=== PATIENT | female | born 1955 | race Caucasian/White ===

== ENCOUNTER → 2018-01-02 | Outpatient (CLI) | payer BC ==
[2018-01-02 08:08] LABS: Urine WBC None Seen /hpf (0 - 5)
[2018-01-02 08:14] LABS: Basophils # (auto) 0.1 uL; Basophils % (auto) 1.1 % (0.0-2.0); Eosinophils # (auto) 0.2 uL; Eosinophils % (auto) 2.7 % (0.0-7.0); Hematocrit 39.2 % (36.0-46.0); Hemoglobin 13.3 g/dL (12.2-16.2); Lymphocytes # (auto) 2.5 uL; Lymphocytes % (auto) 30.7 % (10.0-50.0); Mean Corpuscular Hemoglobin 35.2 pg (28.0-32.0); Mean Corpuscular Volume 103.4 fL (80.0-100.0); Monocytes # (auto) 0.6 uL; Monocytes % (auto) 7.4 % (0.0-12.0); Neutrophils # (auto) 4.7 uL; Neutrophils % (auto) 58.1 % (37.0-80.0); Platelet Count (auto) 326 10^3/uL (140-450); Red Blood Cells 3.79 10^6/uL (4.0-5.20); Red Cell Distribution Width 12.9 % (11.8-14.3); Urine Bacteria NONE SEEN /hpf (None Seen); Urine Blood Negative /uL (Negative); Urine Specific Gravity 1.024 (1.001-1.035)
[2018-01-02 08:44] LABS: Albumin 3.9 g/dL (3.4-5.0); BUN/Creatinine Ratio 23.3; Bilirubin, Total 0.4 mg/dL (0.2-1.0); Calcium 9.3 mg/dL (8.5-10.1); Magnesium 2.1 mg/dL (1.6-2.6); Potassium 4.1 mmol/L (3.5-5.1); Total Protein 8.2 g/dL (6.4-8.2); Uric Acid 7.2 mg/dL (2.6-6.0)
== END | disposition home or self-care (01) ==
LOC: LAB 07:38
DX: Z12.11 Encounter for screening for malignant neoplasm of colon (principal); Z76.89 Persons encountering health services in other specified circumstances
CPT/HCPCS: 36415; 80053; 80061; 81001; 82306; 82607; 83036; 83735; 84443; 84550; 85025; 87086

== ENCOUNTER → 2019-10-23 | Outpatient (CLI) | payer BC ==
[2019-10-23 13:27] LABS: Urine WBC None Seen /hpf (0 - 5)
[2019-10-23 13:30] LABS: Basophils # (auto) 0.1 10 ^3/uL (0-0.2); Eosinophils # (auto) 0.1 10 ^3/uL (0-0.8); Mean Corpuscular Hemoglobin 35.1 pg (28.0-32.0); Mean Corpuscular Hgb Conc. 34.3 g/dL (32.0-36.0)
[2019-10-23 13:31] LABS: Basophils % (auto) 1.1 % (0.0-2.0); Eosinophils % (auto) 1.4 % (0.0-7.0); Hematocrit 41.2 % (36.0-46.0); Hemoglobin 14.1 g/dL (12.2-16.2); Lymphocytes # (auto) 1.7 10 ^3/uL (0.4-5.4); Mean Corpuscular Volume 102.3 fL (80.0-100.0); Monocytes # (auto) 0.5 10 ^3/uL (0-1.3); Neutrophils # (auto) 4.1 10 ^3/uL (1.6-8.6); Neutrophils % (auto) 63.5 % (37.0-80.0); Platelet Count (auto) 307 10^3/uL (140-450); Red Blood Cells 4.02 10^6/uL (4.0-5.20); White Blood Cell 6.4 10^3/uL (4.4-10.8)
[2019-10-23 13:36] LABS: Urine Bacteria NONE SEEN /hpf (None Seen); Urine Blood Negative /uL (Negative); Urine Specific Gravity 1.023 (1.001-1.035)
[2019-10-23 13:44] LABS: INR 1.03 (0.9-1.15)
[2019-10-23 14:01] LABS: Albumin 3.9 g/dL (3.4-5.0); Calcium 9.5 mg/dL (8.5-10.1); Magnesium 2.3 mg/dL (1.6-2.6); Potassium 3.7 mmol/L (3.5-5.1)
[2019-10-23 14:05] LABS: BUN/Creatinine Ratio 20.4; Bilirubin, Total 0.4 mg/dL (0.2-1.0); Phosphorus 3.1 mg/dL (2.5-4.90); Total Protein 8.2 g/dL (6.4-8.2)
[2019-10-23 14:09] LABS: Free T4 (Free Thyroxine) 0.74 ng/dL (0.89-1.76); T3 Total 0.95 ng/mL (0.60-1.81)
[2019-10-23 14:10] LABS: Free T3 2.83 pg/mL (2.3-4.2)
== END | disposition home or self-care (01) ==
LOC: LAB 13:10
DX: Z13.228 Encounter for screening for other metabolic disorders (principal); Z13.21 Encounter for screening for nutritional disorder; R73.09 Other abnormal glucose; R53.1 Weakness; D51.0 Vitamin B12 deficiency anemia due to intrinsic factor deficiency
CPT/HCPCS: 36415; 80053; 80061; 81001; 83036; 83540; 83735; 84100; 84439; 84480; 84481; 84550; 85025; 85610

== ENCOUNTER 2023-10-12 11:45 | Emergency (ER) | payer BC ==
[~2023-10-12] VITALS: Ht 157.5 cm; Wt 56.9 kg
[2023-10-12 12:29] VITALS: BP 174/85; PULSE 75; RESP 17; TEMP 98; O2SAT 100
[2023-10-12] MEDS ORDERED: PRED20TA2 PO (13:02)
[2023-10-12] MEDS ORDERED: LIDO5PAD12 EX (13:02)
== END 2023-10-12 13:06 | disposition home or self-care (01) ==
LOC: ER 11:45
DX: M50.122 Cervical disc disorder at C5-C6 level with radiculopathy (principal); M50.123 Cervical disc disorder at C6-C7 level with radiculopathy
CPT/HCPCS: 72040

== ENCOUNTER → 2024-04-18 | Outpatient (CLI) | payer BC ==
[~2024-04-18] MED LIST: LIDO5PAD12 EX; PRED20TA2 PO
[2024-04-18 08:12] LABS: Urine Bacteria None Seen /hpf (None Seen)
[2024-04-18 08:29] LABS: Basophils # (auto) 0.1 10 ^3/uL (0-0.2); Eosinophils # (auto) 0.3 10 ^3/uL (0-0.8); Eosinophils % (auto) 4.3 % (0.0-7.0); Hematocrit 39.9 % (36.0-46.0); Hemoglobin 13.7 g/dL (12.2-16.2); Lymphocytes # (auto) 2.5 10 ^3/uL (0.4-5.4); Mean Corpuscular Hemoglobin 33.8 pg (28.0-32.0); Mean Corpuscular Hgb Conc. 34.4 g/dL (32.0-36.0); Mean Corpuscular Volume 98.3 fL (80.0-100.0); Monocytes # (auto) 0.5 10 ^3/uL (0-1.3); Monocytes % (auto) 6.9 % (0.0-12.0); Neutrophils # (auto) 3.8 10 ^3/uL (1.6-8.6); Neutrophils % (auto) 52.8 % (37.0-80.0); Nucleated Red Blood Cells % 0.1 %; Platelet Count (auto) 260 10^3/uL (140-450); Red Blood Cells 4.05 10^6/uL (4.0-5.20); Red Cell Distribution Width 13.6 % (11.8-14.3); White Blood Cell 7.2 10^3/uL (4.4-10.8)
[2024-04-18 08:32] LABS: Urine Blood Negative /uL (Negative); Urine Clarity Clear (Clear); Urine Color Yellow (Yellow); Urine Protein, UAD Negative (Negative); Urine Squamous Epithelial Cell None Seen /hpf (<5); Urine Urobilinogen Normal (Negative); Urine WBC 1 /hpf (0 - 5)
[2024-04-18 09:18] LABS: Alanine Aminotransferase 23 U/L (7-40); Albumin 4.5 g/dL (3.2-4.8); Alkaline Phosphatase 111 U/L (46-116); Anion Gap 8 (5-15); Aspartate Aminotransferase 27 U/L (13-40); BUN/Creatinine Ratio 17.6 (10.0-20.0); Bilirubin, Total 0.6 mg/dL (0.2-1.0); Blood Urea Nitrogen 19 mg/dL (9-23); Carbon Dioxide 29 mmol/L (20-31); Chloride 104 mmol/L (98-107); Glucose 102 mg/dL (74-106); Potassium 4.5 mmol/L (3.5-5.1); Sodium 141 mmol/L (136-145); Total Protein 7.2 g/dL (5.7-8.2); Triglycerides 55 mg/dL (< 150)
[2024-04-18 09:19] LABS: Calcium 10.9 mg/dL (8.7-10.4); Cholesterol 221 mg/dL (< 200); HDL Cholesterol 99 mg/dL (40-59); LDL Cholesterol 116 mg/dL (< 100)
[2024-04-18 11:39] LABS: Uric Acid 6.5 mg/dL (3.1-7.8)
[2024-04-18 12:32] LABS: % Iron Saturation 34.4 % (15-50)
== END | disposition home or self-care (01) ==
LOC: LAB 07:46
PROVIDERS: ATTEND Family Medicine
DX: Z12.31 Encounter for screening mammogram for malignant neoplasm of breast (principal); I10 Essential (primary) hypertension; F32.9 Major depressive disorder, single episode, unspecified; M50.30 Other cervical disc degeneration, unspecified cervical region
CPT/HCPCS: 36415; 80053; 80061; 81001; 82306; 82607; 83036; 83540; 83550; 83735; 84443; 84550; 85025; 87086

== ENCOUNTER 2025-02-12 10:41 | Inpatient (IN) | payer BC ==
[~2025-02-12] VITALS: Ht 157.5 cm; Wt 60.8 kg
[2025-02-12 11:37] VITALS: PULSE 133; RESP 28; O2SAT 97
--- NOTE | 2025-02-12 12:22 | DVH ---
CHEST RADIOGRAPH Indication: sob Technique: Single frontal view of the chest was obtained Comparison: None FINDINGS: Lines and Tubes: None. Lungs: Pulmonary edema noted. Pleura: Bilateral pleural effusions. No pneumothorax. Cardiomediastinal contours: Cardiomegaly. Bones: No acute osseous abnormality. IMPRESSION: 1. Cardiomegaly and pulmonary edema. 2. Bilateral pleural effusions.
[2025-02-12] MEDS: LACTATED RINGER'S 1,500 ML IV ONE (13:01)
[2025-02-12 13:53] LABS: Hematocrit 39.3 % (36.0-46.0); Hemoglobin 13.4 g/dL (12.2-16.2); Mean Corpuscular Hemoglobin 33.6 pg (28.0-32.0); Mean Corpuscular Volume 98.4 fL (80.0-100.0); Nucleated Red Blood Cells % 0.2 %
[2025-02-12 14:04] LABS: Albumin 3.7 g/dL (3.2-4.8); Anion Gap 13 (5-15); BUN/Creatinine Ratio 23.8 (10.0-20.0); Blood Urea Nitrogen 20 mg/dL (9-23); Calcium 9.3 mg/dL (8.7-10.4); Carbon Dioxide 21 mmol/L (20-31); Chloride 104 mmol/L (98-107); Glucose 98 mg/dL (74-106); Potassium 3.6 mmol/L (3.5-5.1); Sodium 138 mmol/L (136-145); Total Protein 6.4 g/dL (5.7-8.2)
[2025-02-12 14:05] LABS: Alanine Aminotransferase 156 U/L (7-40); Alkaline Phosphatase 142 U/L (46-116); Bilirubin, Total 1.2 mg/dL (0.2-1.0); INR 1.14 (0.9-1.15); Partial Thromboplastin Time 25.5 SEC (24.5-34.5); Prothrombin Time 11.9 sec (9.3-11.8)
[2025-02-12] MEDS: SODIUM CHLORIDE 0.9% 1,000 ML IV ONE (14:39)
[2025-02-12] MEDS: AMIODARONE BOLUS KIT 100 ML IV ONE (14:39)
[2025-02-12] MEDS ORDERED: ACETAMINOPHEN 325 MG TAB PO PRN (16:30)
[2025-02-12] MEDS ORDERED: NITROGLYCERIN 0.4 MG SL TAB SL PRN (16:30)
[2025-02-12] MEDS ORDERED: MORPHINE SULFATE INJ 2 MG/ml SYRG IV PRN (16:30)
--- NOTE | 2025-02-12 17:12 | DVH ---
INDICATION: elevated lfts TECHNIQUE: Multiple real-time sonographic images of the abdomen were obtained. COMPARISON: None FINDINGS: Hepatic parenchyma echogenic consistent with steatosis.. The liver measures 12.6 cm. No i ntrahepatic biliary ductal dilatation is noted. Anechoic lesion in the liver measuring 6.2 x 4.4 x 5. 2 cm in the left lobe of the liver.. Bilateral pleural effusions noted. The gallbladder wall measures 0.15 cm and is unremarkable. No gallstones or sludge is seen. The co mmon duct measures 0.5 cm and is unremarkable. No pericholecystic fluid is noted. Negative sonograph ic Corrales's sign The right kidney measures 8.01cm. No hydronephrosis. The pancreas is normal The visualized portions of the IVC and aorta are grossly unremarkable. IMPRESSION: 1. 0.6 cm liver with parenchymal changes consistent with steatosis. 2. 6.02 x 4.4 x 5.2 cm cyst in the left lobe of the liver. 3. Gallbladder is unremarkable.
--- NOTE | 2025-02-12 17:29 | ECG ---
[facility] Test Date: 2025-02-12 Test Time: 10:49:30 Pat Name: NASEEM JAMES Department: Room: [facility] Gender: F Plasma Specialist: ER : 1955 Requested By: MORGAN DARNELL Order Number: [id number] Reading MD: Jorge Thomas Measurements Intervals [place] Rate: 127 P: 0 [place]: 0 QRS: 85 QRSD: 82 T: 0 QT: 291 QTc: 424 Interpretive Statements Atrial fibrillation Ventricular premature complex Borderline right axis deviation Nonspecific repol abnormality, lateral leads Electronically Signed On 02-17-2025 13:26:45 PST by Jorge Thomas Please click the below link to view image of tracing.
[2025-02-12] MEDS: ENOXAPARIN SOD 40 MG/0.4 ML SYRINGE SC SCH (17:32)
[2025-02-12] MEDS: MAGNESIUM SULFATE 1GM/100ML 100 ML IV ONE (17:35)
[2025-02-12 18:17] LABS: COVID19 ANTIGEN SOFIA FIA NEGATIVE (NEGATIVE)
[2025-02-12 18:32] VITALS: O2SAT 96
[2025-02-12 19:13] LABS: Urine Amorphous Crystal FEW /hpf (None Seen); Urine Protein, UAD TRACE (Negative)
[2025-02-12 19:21] LABS: Benzodiazephine Screen, Urine Neg (NEGATIVE)
[2025-02-12 19:23] LABS: Amphetamine Screen, Urine Neg (NEGATIVE); Barbiturate Scree,Urine Neg (NEGATIVE); Cannabinoid Screen, Urine Pos (NEGATIVE); Cocaine Screen, Urine Neg (NEGATIVE); Opiate Scree,Urine Neg (NEGATIVE); Phencyclidine Screen, Urine Neg (NEGATIVE)
[2025-02-12 19:31] VITALS: PULSE 114; RESP 36; O2SAT 98
[2025-02-12] MEDS: IOHEXOL 350 MG/ML 100ML IJ ONE (19:31)
[2025-02-12] MEDS: ONDANSETRON HCL 4 MG/2 ML VIAL IV PRN (21:50)
[2025-02-12] MEDS: MELATONIN 5 MG TAB PO SCH (22:20)
--- NOTE | 2025-02-12 22:45 | DVH ---
CTA Chest with intravenous contrast INDICATION: r/o pe COMPARISON: None TECHNIQUE: Multidetector spiral CTA of the chest was performed of the chest with intravenous contrast . PULMONARY ANGIOGRAPHY PROTOCOL was utilized using a bolus-tracking technique centered on the main p ulmonary artery. Axial, coronal and sagittal multiplanar and MIP reformats were performed. Radiation Dose : 1. Chest: CTDI volume is 2.96 mGy. Dose-length product is 701.91 mGy*cm The dose indicators for CT are the volume Computed Tomography (CT) Dose Index (CTDIvol) and the Dose Length Product (DLP), and are measured in units of mGy and mGy-cm, respectively. These indicators are not patient dose, but values generated from the CT scanner acquisition factors. The report includes radiation exposure data for exposures received during this examination. Findings: Pulmonary artery: Suboptimal opacification of the pulmonary arterial vascular secondary to timing of the contrast bolus limits the exclusion of smaller and/or more distal segmental and subsegmental pulmonary emboli. No large central or saddle type segmental pulmonary embolism. Lower neck: Normal thyroid. Lungs: Moderate bilateral pleural effusions with adjacent atelectasis and diffuse multifocal patchy g round-glass opacity. No focal consolidation or pneumothorax. Heart/Vascular Structures: Cardiomegaly. No pericardial effusion. Lymph Nodes: No adenopathy Musculoskeletal: No acute osseous abnormality. Soft tissues: Normal. Upper abdomen: Limited portions of the upper abdomen are unremarkable. 5.3 cm left hepatic lobe cyst. IMPRESSION: 1. Large central or saddle type pulmonary embolus. Suboptimal opacification of the pulmonary arterial vasculature secondary to timing of the contrast bolus limits the occlusion of smaller and/or more di stal segmental and subsegmental pulmonary emboli. 2. Moderate bilateral pleural effusions with adjacent atelectasis and diffuse multifocal patchy groun d-glass opacity.
[2025-02-13] VITALS (17 sets, daily range): BP systolic 99–124; BP diastolic 54–80; PULSE 62–76; RESP 18–27; TEMP 97.5–99.4; O2SAT 89–99
[2025-02-13] MEDS: ENOXAPARIN SOD 30 MG/0.3 ML SYRINGE SC ONE (01:33)
[2025-02-13 05:04] LABS: Hematocrit 39.9 % (36.0-46.0); Hemoglobin 13.4 g/dL (12.2-16.2); Mean Corpuscular Hemoglobin 33.6 pg (28.0-32.0); Mean Corpuscular Volume 100.2 fL (80.0-100.0); Nucleated Red Blood Cells % 0.1 %
[2025-02-13 05:30] LABS: Albumin 3.5 g/dL (3.2-4.8); Anion Gap 13 (5-15); BUN/Creatinine Ratio 30.3 (10.0-20.0); Calcium 8.9 mg/dL (8.7-10.4); Carbon Dioxide 20 mmol/L (20-31); Chloride 107 mmol/L (98-107); Magnesium 2.4 mg/dL (1.6-2.6); Potassium 3.8 mmol/L (3.5-5.1); Sodium 140 mmol/L (136-145); Total Protein 5.9 g/dL (5.7-8.2)
[2025-02-13 05:36] LABS: Alkaline Phosphatase 141 U/L (46-116); Blood Urea Nitrogen 27 mg/dL (9-23); Glucose 109 mg/dL (74-106)
[2025-02-13 05:37] LABS: Bilirubin, Total 1.4 mg/dL (0.2-1.0)
[2025-02-13 05:53] LABS: Alanine Aminotransferase 1339 U/L (7-40)
[2025-02-13] MEDS: HEPARIN SODIUM (PORCINE) 5000 UNITS/ML 1ML VIAL IV ONE (08:00)
[2025-02-13 08:38] LABS: INR 1.44 (0.9-1.15); Partial Thromboplastin Time 29.2 SEC (24.5-34.5); Prothrombin Time 14.7 sec (9.3-11.8)
[2025-02-13] MEDS: HEPARIN DRIP/D5W 100UNITS/ML 250 ML IV SCH (08:49)
[2025-02-13] MEDS ORDERED: ENOXAPARIN SOD 60 MG/0.6 ML SYRINGE SC SCH ×2 (10:00→11:41)
[2025-02-13] MEDS: SERTRALINE HCL 50 MG TAB PO SCH (10:43)
[2025-02-13] MEDS: LOSARTAN POTASSIUM 50 MG TAB PO SCH (10:43)
[2025-02-13] MEDS: ENOXAPARIN SOD 100 MG/1 ML SYRINGE SC ONE (11:00)
[2025-02-13] MEDS: ALBUTEROL SULF 2.5 MG/0.5ML(0.5%) NEB SOLN ONE (11:09)
[2025-02-13] MEDS: IPRATROPIUM BROM 0.5 MG/2.5ML INH SOL ONE (11:09)
--- NOTE | 2025-02-13 11:09 | ED.PDOC ---
SOB-HPI HPI Comments 69y F who presents to the ED for chief complaint of flu-like symptoms. Pt has been having cough, congestion for the past 1x week. Pt states over the past few days, she started to have palpitations and shortness of breath and came today for further evaluation. Pt otherwise in the ED, noted to be shortness of breath with noted respiratory distress in the ED. Pt has noted BP of 145/101 with noted heart rate of 122 in the ED. Pt otherwise denies any other symptoms at this time. Chief Complaint: Flu like Time Seen by MD: 11:31 Reviewed notes: Medications, Allergies Information Source: Patient, Spouse Mode of Arrival: Ambulatory Brought in by: spouse Past Medical History PAST MEDICAL HISTORY: Denies Surgical History: Denies all surgeries IMPREGNATOR AND DRIER HELPER History: No Pertinent IMPREGNATOR AND DRIER HELPER History Family History Family History: Reviewed,noncontributory to illness Social History Smoker: Non-Smoker Alcohol: Denies ETOH Use Drugs: Denies Drug Use Lives In: Home Constitutional: denies: chills, diaphoresis, fatigue, fever, malaise, sweats, weakness, others EENTM: denies: blurred vision, double vision, ear bleeding, ear discharge, ear drainage, ear pain, ear ringing, eye pain, eye redness, hearing loss, mouth pain, mouth swelling, nasal discharge, nose bleeding, nose congestion, nose pain, photophobia, tearing, throat pain, throat swelling, voice changes, others Respiratory: reports: cough, shortness of breath; denies: hemoptysis, orthopnea, SOB at rest, SOB with excertion, stridor, wheezing, others Cardiovascular: denies: chest pain, dizzy spells, diaphoresis, Dyspnea on exertion, edema, irregular heart beat, left arm pain, lightheadedness, palpitations, PND, syncope, others Gastrointestinal: denies: abdomen distended, abdominal pain, blood streaked bowels, constipated, diarrhea, dysphagia, difficulty swallowing, hematemesis, melena, nausea, poor appetite, poor fluid intake, rectal bleeding, rectal pain, vomiting, others Genitourinary: denies: abnormal vagina bleeding, burning, dyspareunia, dysuria, flank pain, frequency, hematuria, incontinence, pain, , vagina discharge, urgency, others Neurological: denies: dizziness, fainting, headache, left sided numbness, left sided weakness, numbness, paresthesia, pre-existing deficit, right sided numbness, right sided weakness, seizure, speech problems, tingling, tremors, weakness, others Musculoskeletal: denies: back pain, gout, joint pain, joint swelling, muscle pain, muscle stiffness, neck pain, others Integumetry: denies: bruises, change in color, change in hair/nails, dryness, laceration, lesions, lumps, rash, wounds, others Allergic/Immunocompromised: denies: Difficulty Healing, Frequent Infections, Hives, Itching, others Hematologic/Lymphatic: denies: anemia, blood clots, easy bleeding, easy bruising, swollen glands, others Endocrine: denies: excessive hunger, excessive sweating, excessive thirst, excessive urination, flushing, intolerance to cold, intolerance to heat, unexplained weight gain, unexplained weight loss, others Psychiatric: denies: anxiety, bipolar disorder, depression, hopeless, panic disorder, schizophrenia, sleepless, suicidal, others All Other Systems: Reviewed and Negative Physical Exam General Appearance: Moderate Distress HEENT: Normal ENT Inspection, Pharynx Normal, TMs Normal Neck: Full Range of Motion, Non-Tender, Normal, Normal Inspection Respiratory: Other (tachypnea) Cardiovascular: Tachycardia Breast Exam: Deferred Gastrointestinal: No Organomegaly, Non Tender, No Pulsatile Mass, Normal Bowel Sounds, Soft Genitalia: Deferred Pelvic: Deferred Rectal: Deferred Extremities: No calf tenderness, Normal capillary refill, Normal inspection, Normal range of motion, Non-tender, No pedal edema Musculoskeletal : Apperance: Normal Neurologic: Alert, charter pilot II-XII nml as Tested, No Motor Deficits, Normal Affect, Normal Mood, No Sensory Deficits Cerebellar Function: Normal Reflexes: Normal Skin: Dry, Normal Color, Warm Lymphatic: No Adenopathy EKG EKG : Comments AFIB RVR Was a procedure done? Was a procedure done?: No Differential Dx Differential Diagnosis: Myocardial infarction, Pneumonia, Pulmonary Embolism, Respiratory Distress Comments new onset AFIB X-Ray, Labs, Meds, VS Vital Signs Date Time Temp Pulse Resp B/P (MAP) Pulse Ox O2 Delivery O2 Flow Rate FiO2 02/12/25 13:00 116 26 138/64 (88) 96 02/12/25 11:37 98.2 135 18 154/57 (89) 96 98.2 02/12/25 11:37 133 28 97 Nasal Cannula* 2 28 02/12/25 10:49 127 02/12/25 10:42 98.1 122 20 145/101 96 98.1 Lab Test 02/12/25 13:29 Range/Units White Blood Count 10.1 4.4-10.8 10^3/uL Red Blood Count 3.99 L 4.0-5.20 10^6/uL Hemoglobin 13.4 12.2-16.2 g/dL Hematocrit 39.3 36.0-46.0 % Mean Corpuscular Volume 98.4 80.0-100.0 fL Mean Corpuscular Hemoglobin 33.6 H 28.0-32.0 pg Mean Corpuscular Hemoglobin Concent 34.2 32.0-36.0 g/dL Red Cell Distribution Width 14.8 H 11.8-14.3 % Platelet Count 279 140-450 10^3/uL Mean Platelet Volume 7.8 6.9-10.8 fL Neutrophils (%) (Auto) 67.5 37.0-80.0 % Lymphocytes (%) (Auto) 21.6 10.0-50.0 % Monocytes (%) (Auto) 9.5 0.0-12.0 % Eosinophils (%) (Auto) 0.6 0.0-7.0 % Basophils (%) (Auto) 0.8 0.0-2.0 % Neutrophils # (Auto) 6.9 1.6-8.6 10 ^3/uL Lymphocytes # (Auto) 2.2 0.4-5.4 10 ^3/uL Monocytes # (Auto) 1.0 0-1.3 10 ^3/uL Eosinophils # (Auto) 0.1 0-0.8 10 ^3/uL Basophils # (Auto) 0.1 0-0.2 10 ^3/uL Nucleated Red Blood Cells 0.2 % Prothrombin Time 11.9 H 9.3-11.8 sec Prothrombin Time INR 1.14 0.9-1.15 Activated Partial Thromboplast Time 25.5 24.5-34.5 SEC Sodium Level 138 136-145 mmol/L Potassium Level 3.6 3.5-5.1 mmol/L Chloride Level 104 98-107 mmol/L Carbon Dioxide Level 21 20-31 mmol/L Anion Gap 13 5-15 Blood Urea Nitrogen 20 9-23 mg/dL Creatinine 0.84 0.550-1.02 mg/dL Glomerular Filtration Rate Calc 75 >90 mL/min BUN/Creatinine Ratio 23.8 H 10.0-20.0 Serum Glucose 98 74-106 mg/dL Lactic Acid Level 1.5 0.4-2.0 mmol/L Calcium Level 9.3 8.7-10.4 mg/dL Total Bilirubin 1.2 H 0.2-1.0 mg/dL Aspartate Amino Transferase (AST) 138 H 13-40 U/L Alanine Aminotransferase (ALT) 156 H 7-40 U/L Alkaline Phosphatase 142 H 46-116 U/L Total Protein 6.4 5.7-8.2 g/dL Albumin 3.7 3.2-4.8 g/dL Current Medications Medications (Trade) Dose Ordered Sig/Matheus Route Start Time Stop Time Status Last Admin Lactated Ringer's 1,500 ml @ 1,500 mls/hr ONCE ONCE IV 02/12/25 12:00 02/12/25 12:59 DC 02/12/25 13:01 Amiodarone HCl 100 ml @ 600 mls/hr ONCE ONCE IV 02/12/25 14:15 02/12/25 14:24 DC 02/12/25 14:39 Amiodarone HCl 250 ml @ 33.33 mls/ hr Q7H31M ONCE IV 02/12/25 14:30 02/12/25 22:00 02/12/25 15:00 Sodium Chloride 1,000 ml @ 1,000 mls/hr Q1H ONCE IV 02/12/25 14:15 02/12/25 15:14 DC 02/12/25 14:39 [place] [id number] Ph: [phone] DIAGNOSTIC IMAGING Diagnostic Imaging Report : [id number] Signed PATIENT: NASEEM JAMES ACCT: [id number] UNIT: [id number] : 1955 LOC: ER ROOM / BED: / AGE / SEX: 69 / F ADM STATUS: REG ER SERVICE 1146 ORDERING PHYSICIAN: MORGAN REMY MD PROCEDURE(s): CXRP - CHEST PORTABLE REASON: sob ORDER NUMBER(s): [id number], ACCESSION NUMBER(s): [id number] CHEST RADIOGRAPH Indication: sob Technique: Single frontal view of the chest was obtained Comparison: None FINDINGS: Lines and Tubes: None. Lungs: Pulmonary edema noted. Pleura: Bilateral pleural effusions. No pneumothorax. Cardiomediastinal contours: Cardiomegaly. Bones: No acute osseous abnormality. IMPRESSION: 1. Cardiomegaly and pulmonary edema. 2. Bilateral pleural effusions. ATED BY: EDMOND SKINNER MD DICTATED DATE/TIME: 02/12/251219 SIGNED BY: EDMOND SKINNER MD SIGNED DATE/TIME: 02/12/251219 CC: Images Reviewed?: Images reviewed and evaluated by me Time of 1ST Reevaluation: 12:00 Reevaluation 1ST: Unchanged Patient Education/Counseling: Diagnosis, Treatment Family Education/Counseling: Diagnosis, Treatment SEPSIS Sepsis Screen Date sepsis recognized/suspect: Feb 12, 2025 Time Sepsis recognized/suspect: 1043 Recent Procedure: No On Antibiotic Therapy: No Respiratory Rate >20: No Heart Rate >90: Yes Temp<36 C (96.8 F) or >38.3 C: No SBP <90 or MAP <65 mmHG: No New Acute Mental Status Change: No Is the patient on CPAP, BIPAP,: No Physician Orders Electrocardigram (02/12/25 10:52) Urinalysis (02/12/25 11:46) Chest Portable (02/12/25 11:46) Accucheck (02/12/25 11:46) Blood Culture (02/12/25 11:46) Notify Md If Map <65 Or Bp<90 (02/12/25 11:46) If Map<65 Start Vasopressor (02/12/25 11:46) Sepsis Reassesment After Fluid (02/12/25 12:46) Amiodarone 450mg/250ml Ae (Cordarone) (02/12/25 14:30) Amiodarone 450mg/250ml Ae (Cordarone) (02/12/25 20:30) Vital Signs Date Time Temp Pulse Resp B/P (MAP) Pulse Ox O2 Delivery O2 Flow Rate FiO2 02/12/25 13:00 116 26 138/64 (88) 96 02/12/25 11:37 98.2 135 18 154/57 (89) 96 98.2 02/12/25 11:37 133 28 97 Nasal Cannula* 2 28 02/12/25 10:49 127 02/12/25 10:42 98.1 122 20 145/101 96 98.1 Laboratory Tests Test 02/12/25 13:29 Lactic Acid Level 1.5 mmol/L (0.4-2.0) White Blood Count 10.1 10^3/uL (4.4-10.8) Medications Medications Dose Ordered Sig/Matheus Route Start Time Stop Time Status Last Admin Dose Admin Amiodarone HCl 100 ml @ 600 mls/hr ONCE ONCE IV 02/12/25 14:15 02/12/25 14:24 DC 02/12/25 14:39 Amiodarone HCl 250 ml @ 33.33 mls/ hr Q7H31M ONCE IV 02/12/25 14:30 02/12/25 22:00 02/12/25 15:00 Lactated Ringer's 1,500 ml @ 1,500 mls/hr ONCE ONCE IV 02/12/25 12:00 02/12/25 12:59 DC 02/12/25 13:01 Sodium Chloride 1,000 ml @ 1,000 mls/hr Q1H ONCE IV 02/12/25 14:15 02/12/25 15:14 DC 02/12/25 14:39 Departure 1 Departure Time of Disposition: 16:15 (Patient with new onset AFib with RVR. We will start patient on amnio drip and admit patient for further workup and expert consultation) Impression: Primary Impression: Atrial fibrillation with RVR Additional Impression: Acute dyspnea Disposition: 09 ADMITTED INPATIENT Admit to: [facility] Condition: Guarded Critical Care Note Critical Care Time?: Yes Critical care comment: AFib with RVR Authorized and Performed by: Morgan Remy MD Total critical care time: Approximately 41 minutes Due to a high probability of clinically significant, life threatening d eterioration, the patient required my highest level of preparedness to intervene emergently and I personally spent this critical care time directly and personally managing the patient. This critical care time included obtaining a history; examining the patient; pulse oximetry; ordering and review of studies; arranging urgent treatment with development of a management plan; evaluation of patient's response to treatment; frequent reassessment; and, discussions with other providers. This critical care time was performed to assess and manage the high probability of imminent, life-threatening deterioration that could result in multi-organ failure. It was exclusive of separately billable procedures and treating other patients and teaching time. Please see my other sections and the rest of the note for further information on patient assessment and treatment. Stability Stability form required: No Heart Score Heart Score: Heart Score Response (Comments) Value History Slightly Suspicious 0 EKG Repolarization Disturb 1 Age >65 2 Risk Factors No known risk factors 0 Troponin 1-2 x's Normal limit 1 Total 4 I personally scribed for MORGAN REMY MD ([email or web address]) on 02/12/25 at 11:36. Electronically submitted by Stephan Adams ([email or web address]). I personally scribed for MORGAN REMY MD ([email or web address]) on 02/12/25 at 15:18. Electronically submitted by Randy Velazquez ([email or web address]). MORGAN REMY MD Feb 12, 2025 11:36
--- NOTE | 2025-02-13 11:19 | DVHHP2 ---
History of Present Illness Reason for Visit: SOB History of Present Illness Xiomara Garcia is a 69-year-old female with hypertension and anxiety who presents to the ED with shortness of breath and palpitations that started 2 weeks ago. Patient reports that she was walking when the shortness of breath happened but was on an incline, she reports that she does her walks and assumed it was due to that. Patient reports that she does not use home oxygen. Patient's Christiano at the bedside. Patient also reports that she was exposed to her sick who had the flu last week. Patient denies any chest pain, fever, chills, lightheadedness, weakness, dizziness, abdominal pain, nausea, vomiting, diarrhea, or urinary symptoms. Patient also reports that she ambulates without any DMEs. Patient reports that she does have a primary care physician but does not have a char dust cleaner and salvager. Her Christiano is requesting for a char dust cleaner and salvager. Cardiovascular: HTN Psych: Anxiety Past Surgical History: None Family History: Cancer, Other (Mom with breast cancer in from a brain bleed. Dad with VT, CABG, and from prostate cancer.) Smoke: No ALCOHOL: occassional Drugs: None Lives: with Family Domestic Violence: Neg Review of Systems Respiratory: Shortness of breath Cardiovascular: Palpitations Allergies: Coded Allergies: Penicillins (Verified Allergy, Unknown, 02/12/25) Medications Current Medications Medications Dose Ordered Sig/Matheus Route Start Time Stop Time Status Last Admin Dose Admin Amiodarone HCl 250 ml @ 16.66 mls/ hr Q15H1M IV 02/12/25 20:30 Exam Vital Signs Vital Signs Date Time Temp Pulse Resp B/P (MAP) Pulse Ox O2 Delivery O2 Flow Rate FiO2 02/12/25 16:00 114 24 120/86 (97) 98 02/12/25 11:37 98.2 98.2 02/12/25 11:37 Nasal Cannula* 2 28 General Appearance: Alert, Oriented X3, Cooperative, No acute distress HEENT: Atraumatic, PERRLA, EOMI, Mucous membr. moist/pink Respiratory: Normal air movement Cardiovascular: Normal S1, Normal S2 Abdominal: Normal bowel sounds, Soft Extremities: No edema, Normal pulses Neuro: Normal speech, Strength at 5/5 X4 ext, Normal tone, Sensation intact Psych/Mental Status: Mental status NL, Mood NL Labs/Xrays Labs Test 02/12/25 13:29 Range/Units White Blood Count 10.1 4.4-10.8 10^3/uL Red Blood Count 3.99 L 4.0-5.20 10^6/uL Hemoglobin 13.4 12.2-16.2 g/dL Hematocrit 39.3 36.0-46.0 % Mean Corpuscular Volume 98.4 80.0-100.0 fL Mean Corpuscular Hemoglobin 33.6 H 28.0-32.0 pg Mean Corpuscular Hemoglobin Concent 34.2 32.0-36.0 g/dL Red Cell Distribution Width 14.8 H 11.8-14.3 % Platelet Count 279 140-450 10^3/uL Mean Platelet Volume 7.8 6.9-10.8 fL Neutrophils (%) (Auto) 67.5 37.0-80.0 % Lymphocytes (%) (Auto) 21.6 10.0-50.0 % Monocytes (%) (Auto) 9.5 0.0-12.0 % Eosinophils (%) (Auto) 0.6 0.0-7.0 % Basophils (%) (Auto) 0.8 0.0-2.0 % Neutrophils # (Auto) 6.9 1.6-8.6 10 ^3/uL Lymphocytes # (Auto) 2.2 0.4-5.4 10 ^3/uL Monocytes # (Auto) 1.0 0-1.3 10 ^3/uL Eosinophils # (Auto) 0.1 0-0.8 10 ^3/uL Basophils # (Auto) 0.1 0-0.2 10 ^3/uL Nucleated Red Blood Cells 0.2 % Prothrombin Time 11.9 H 9.3-11.8 sec Prothrombin Time INR 1.14 0.9-1.15 Activated Partial Thromboplast Time 25.5 24.5-34.5 SEC Sodium Level 138 136-145 mmol/L Potassium Level 3.6 3.5-5.1 mmol/L Chloride Level 104 98-107 mmol/L Carbon Dioxide Level 21 20-31 mmol/L Anion Gap 13 5-15 Blood Urea Nitrogen 20 9-23 mg/dL Creatinine 0.84 0.550-1.02 mg/dL Glomerular Filtration Rate Calc 75 >90 mL/min BUN/Creatinine Ratio 23.8 H 10.0-20.0 Serum Glucose 98 74-106 mg/dL Lactic Acid Level 1.5 0.4-2.0 mmol/L Calcium Level 9.3 8.7-10.4 mg/dL Total Bilirubin 1.2 H 0.2-1.0 mg/dL Aspartate Amino Transferase (AST) 138 H 13-40 U/L Alanine Aminotransferase (ALT) 156 H 7-40 U/L Alkaline Phosphatase 142 H 46-116 U/L Total Protein 6.4 5.7-8.2 g/dL Albumin 3.7 3.2-4.8 g/dL CHEST RADIOGRAPH Indication: sob Technique: Single frontal view of the chest was obtained Comparison: None FINDINGS: Lines and Tubes: None. Lungs: Pulmonary edema noted. Pleura: Bilateral pleural effusions. No pneumothorax. Cardiomediastinal contours: Cardiomegaly. Bones: No acute osseous abnormality. IMPRESSION: 1. Cardiomegaly and pulmonary edema. 2. Bilateral pleural effusions. INDICATION: elevated lfts TECHNIQUE: Multiple real-time sonographic images of the abdomen were obtained. COMPARISON: None FINDINGS: Hepatic parenchyma echogenic consistent with steatosis.. The liver measures 12.6 cm. No intrahepatic biliary ductal dilatation is noted. Anechoic lesion in the liver measuring 6.2 x 4.4 x 5.2 cm in the left lobe of the liver.. Bilateral pleural effusions noted. The gallbladder wall measures 0.15 cm and is unremarkable. No gallstones or sludge is seen. The common duct measures 0.5 cm and is unremarkable. No pericholecystic fluid is noted. Negative sonographic Corrales's sign The right kidney measures 8.01cm. No hydronephrosis. The pancreas is normal The visualized portions of the IVC and aorta are grossly unremarkable. IMPRESSION: 1. 0.6 cm liver with parenchymal changes consistent with steatosis. 2. 6.02 x 4.4 x 5.2 cm cyst in the left lobe of the liver. 3. Gallbladder is unremarkable. SEPSIS Sepsis Screen Date sepsis recognized/suspect: Feb 12, 2025 Time Sepsis recognized/suspect: 1130 Recent Procedure: No On Antibiotic Therapy: No Respiratory Rate >20: No Heart Rate >90: No Temp<36 C (96.8 F) or >38.3 C: No SBP <90 or MAP <65 mmHG: No New Acute Mental Status Change: No Is the patient on CPAP, BIPAP,: No Physician Orders Electrocardigram (02/12/25 10:52) Urinalysis (02/12/25 11:46) Chest Portable (02/12/25 11:46) Accucheck (02/12/25 11:46) Blood Culture (02/12/25 11:46) Notify Md If Map <65 Or Bp<90 (02/12/25 11:46) If Map<65 Start Vasopressor (02/12/25 11:46) Sepsis Reassesment After Fluid (02/12/25 12:46) Amiodarone 450mg/250ml Ae (Cordarone) (02/12/25 14:30) Amiodarone 450mg/250ml Ae (Cordarone) (02/12/25 20:30) Vital Signs Date Time Temp Pulse Resp B/P (MAP) Pulse Ox O2 Delivery O2 Flow Rate FiO2 02/12/25 16:00 114 24 120/86 (97) 98 02/12/25 13:00 116 26 138/64 (88) 96 02/12/25 11:37 98.2 135 18 154/57 (89) 96 98.2 02/12/25 11:37 133 28 97 Nasal Cannula* 2 28 02/12/25 10:49 127 02/12/25 10:42 98.1 122 20 145/101 96 98.1 Laboratory Tests Test 02/12/25 13:29 Lactic Acid Level 1.5 mmol/L (0.4-2.0) White Blood Count 10.1 10^3/uL (4.4-10.8) Medications Medications Dose Ordered Sig/Matheus Route Start Time Stop Time Status Last Admin Dose Admin Amiodarone HCl 100 ml @ 600 mls/hr ONCE ONCE IV 02/12/25 14:15 02/12/25 14:24 DC 02/12/25 14:39 600 MLS/HR Amiodarone HCl 250 ml @ 33.33 mls/ hr Q7H31M ONCE IV 02/12/25 14:30 02/12/25 22:00 02/12/25 15:00 33.33 MLS/HR Lactated Ringer's 1,500 ml @ 1,500 mls/hr ONCE ONCE IV 02/12/25 12:00 02/12/25 12:59 DC 02/12/25 13:01 1,500 MLS/HR Sodium Chloride 1,000 ml @ 1,000 mls/hr Q1H ONCE IV 02/12/25 14:15 02/12/25 15:14 DC 02/12/25 14:39 1,000 MLS/HR Assessment/Plan Assessment/Plan Assessment AFib with RVR Cardiomegaly and pulmonary edema Bilateral pleural effusions Transaminitis Rule out PE, elevated D-dimer Acute hypoxic respiratory failure on supplemental oxygen Alcohol use History of hypertension History of anxiety Plan Admit to [facility] Supplemental O2 D-dimer Antiemetics Pain management Abdominal ultrasound Magnesium IV UA UDS Urine culture Flu test COVID test Echo Blood culture Amio drip CTA chest Melatonin NS 1 L given ED LR 1.5 L given ED Lactic PT/PTT UA Chest x-ray Diet DVT prophylaxis-Lovenox PUD prophylaxis-not indicated no history of GERD or GI bleed Discussed plan of care with patient, patient's spouse, and nurse Counseled patient on cessation of alcohol use [id number] Preventive counseling healthy eating habits, physical activity, and regular checkups Plan discussed with: Patient, Spouse Date of Service: Feb 12, 2025 Billing Provider: FLORA RIVERA Common Visit Codes: [id number] INP/OBS CARE (HIGH) Secondary Visit Codes: [id number] COUNSELING IND FLORA RIVERA Feb 12, 2025 16:31
--- NOTE | 2025-02-13 11:41 | DVHCONRES ---
Date Seen: Feb 13, 2025 Resident Creating Document: SILVANO TONG RESIDENT Referring Physician Edna LIN History of Present Illness 69-year-old female presented to the ER with a chief complaint of generalized weakness and shortness of breaths for the past week. Patient is A&O x4, on nasal cannula supplementation 2 L, per patient and , they were experiencing flu-like symptoms for the past week to 10 days, patient reports having diarrhea initially followed by generalized weakness, shortness of breaths on exertion and a dry cough which resolved and then worsened followed which the patient came to the ER. For shortness of breaths, shortness of breaths on exertion, orthopnea but denies PND, denies lower extremity swelling. Denies chest pain, reports palpitations which are chronic, denies abdominal or GI or complaints. They did a COVID test at home which was negative. On arrival to the ER patient was tachycardic, EKG showed AFib with a RVR, reverted to sinus with IV amiodarone drip. COVID flu swabs negative. Past medical history: Hypertension, anxiety, OCD, osteoarthritis Past surgical history: None Home medication: Losartan 100 mg daily, Motrin Social history: Lives in [place] with the , denies smoking, drinking, drug use Patient seen and examined at bedside. Has bilateral crackles on NC 2 L supplementation, minimal pitting edema. Allergies: Coded Allergies: Penicillins (Verified Allergy, Mild, 02/13/25) RASH FROM AMPICILLIN Home Meds Active Scripts Prednisone (Prednisone) 20 Mg Tab, 40 MG PO DAILY, #20 TAB Prov:GALINA REYES 10/12/23 Lidocaine (Lidocaine Patch 5%) 5 % Pad, 5 % EX DAILY, #30 PAD Prov:GALINA REYES 10/12/23 Current Medications Current Medications Medications (Trade) Dose Ordered Sig/Matheus Route PRN Reason Start Time Stop Time Status Last Admin Amiodarone HCl 250 ml @ 16.66 mls/ hr Q15H1M IV 02/12/25 20:30 Ondansetron HCl (Zofran) 4 mg Q4HP PRN IV NAUSEA / VOMITING 02/12/25 16:30 02/13/25 01:33 Acetaminophen (Tylenol Tablet) 650 mg Q6HP PRN PO PAIN SCALE 1-3 OR TEMP>100.4 02/12/25 16:30 Nitroglycerin (Ntrostat Sublingual) 0.4 mg Q5MINP PRN SL FOR CHEST PAIN 02/12/25 16:30 Morphine Sulfate 2 mg Q30M PRN IV FOR CHEST PAIN 02/12/25 16:30 Enoxaparin Sodium (Lovenox) 40 mg DAILY SC 02/12/25 16:30 02/13/25 01:16 DC 02/12/25 17:32 Melatonin (Melatonin) 5 mg HS PO 02/12/25 22:00 02/12/25 22:20 Losartan Potassium (Cozaar Tablet) 100 mg DAILY PO 02/13/25 10:00 Sertraline HCl (Zoloft) 50 mg DAILY PO 02/13/25 10:00 Enoxaparin Sodium (Lovenox) 60 mg BID SC 02/13/25 10:00 02/13/25 08:00 DC Heparin Sodium/ Dextrose 250 ml @ 10 mls/hr Q24H IV 02/13/25 08:49 Review of Systems Eyes: No Pain, No Vision change, No Conjunctivae inflammation, No Eyelid inflammation, No Other, No Redness ENT: No Ear pain, No Ear discharge, No Nose pain, No Nose discharge, No Nose congestion, No Mouth pain, No Mouth swelling, No Throat pain, No Throat swelling, No Other Cardiovascular: No Chest Pain, reports Palpitations, No Orthopnea, No PND, No Edema, No Lt Headedness, No Other Respiratory: Reports dry Cough, No Dry, reports Shortness of breath, No SOB with exertion, No Wheezing, No Hemoptysis, No Pleuritic Pain, No Sputum, No Other Gastrointestinal: No Nausea, No Vomiting, No Abdominal Pain, No Diarrhea, No Constipation, No Melena, No Hematochezia, No Other Genitourinary: No Dysuria, No Frequency, No Incontinence, No Hematuria, No Retention, No Other Musculoskeletal: No other, No neck pain, No shoulder pain, No arm pain, No back pain, No hand pain, No leg pain, No foot pain Skin: No Rash, No Lesions, No Jaundice, No Bruising, No Other Vital Signs Vital Signs Date Time Temp Pulse Resp B/P (MAP) Pulse Ox O2 Delivery O2 Flow Rate FiO2 02/13/25 06:00 97.5 59 22 119/65 (83) 98 97.5 02/12/25 19:31 Nasal Cannula* 2 28 Physical Exam Patient lying in bed, in no acute distress General: Well-built, afebrile, palor, mucosae are moist Cardiovascular: Regular S1 and S2. No murmurs, gallops or rubs. No JVD elevation. Minimal pedal edema Respiratory: Bilateral crackles heard on auscultation, no wheezing or stridor heard, on NC 2 L supplementation. Abdomen: Soft, nontender, nondistended, normoactive bowel sounds, no rebound tenderness, no organomegaly, no masses Genitourinary: Deferred MSK/skin: Mobilizes 4 limbs. Skin is dry and warm Neurological: No motor, no sensitive deficits, normal speech. Pupils are isocoric and reactive. Psych/Mental Status: A/Ox3 Labs/Diagnostic Data Labs Test 02/13/25 04:35 02/12/25 18:45 02/12/25 17:15 02/12/25 13:29 Range/Units White Blood Count 15.1 #H 4.4-10.8 10^3/uL Red Blood Count 3.98 L 4.0-5.20 10^6/uL Hemoglobin 13.4 12.2-16.2 g/dL Hematocrit 39.9 36.0-46.0 % Mean Corpuscular Volume 100.2 H 80.0-100.0 fL Mean Corpuscular Hemoglobin 33.6 H 28.0-32.0 pg Mean Corpuscular Hemoglobin Concent 33.6 32.0-36.0 g/dL Red Cell Distribution Width 14.8 H 11.8-14.3 % Platelet Count 256 140-450 10^3/uL Mean Platelet Volume 7.8 6.9-10.8 fL Neutrophils (%) (Auto) 80.7 H 37.0-80.0 % Lymphocytes (%) (Auto) 11.7 10.0-50.0 % Monocytes (%) (Auto) 7.3 0.0-12.0 % Eosinophils (%) (Auto) 0.1 0.0-7.0 % Basophils (%) (Auto) 0.2 0.0-2.0 % Neutrophils # (Auto) 12.2 H 1.6-8.6 10 ^3/uL Lymphocytes # (Auto) 1.8 0.4-5.4 10 ^3/uL Monocytes # (Auto) 1.1 0-1.3 10 ^3/uL Eosinophils # (Auto) 0 0-0.8 10 ^3/uL Basophils # (Auto) 0 0-0.2 10 ^3/uL Nucleated Red Blood Cells 0.1 % Prothrombin Time 14.7 H 9.3-11.8 sec Prothrombin Time INR 1.44 H 0.9-1.15 Activated Partial Thromboplast Time 29.2 24.5-34.5 SEC Sodium Level 140 136-145 mmol/L Potassium Level 3.8 3.5-5.1 mmol/L Chloride Level 107 98-107 mmol/L Carbon Dioxide Level 20 20-31 mmol/L Anion Gap 13 5-15 Blood Urea Nitrogen 27 H 9-23 mg/dL Creatinine 0.89 0.550-1.02 mg/dL Glomerular Filtration Rate Calc 70 >90 mL/min BUN/Creatinine Ratio 30.3 H 10.0-20.0 Serum Glucose 109 H 74-106 mg/dL Calcium Level 8.9 8.7-10.4 mg/dL Magnesium Level 2.4 1.6-2.6 mg/dL Total Bilirubin 1.4 H 0.2-1.0 mg/dL Aspartate Amino Transferase (AST) 2176 H 13-40 U/L Alanine Aminotransferase (ALT) 1339 H 7-40 U/L Alkaline Phosphatase 141 H 46-116 U/L Total Protein 5.9 5.7-8.2 g/dL Albumin 3.5 3.2-4.8 g/dL Urine Color Yellow Yellow Urine Clarity Clear Clear Urine pH 5.5 5.0-9.0 Urine Specific [place] 1.017 1.001-1.035 Urine Protein Trace H Negative Urine Ketones Negative Negative Urine Blood Negative Negative /uL Urine Nitrite Negative Negative Urine Bilirubin Negative Negative Urine Urobilinogen Normal Negative mg/dL Urine Leukocyte Esterase Negative Negative /uL Urine RBC 1 0 - 4 /hpf Urine Microscopic WBC 4 0-5 /HPF Urine Squamous Epithelial Cells Few <5 /hpf Urine Amorphous Crystals Few None Seen /hpf Urine Bacteria None seen None Seen /hpf Urine Hyaline Casts Few 0 - 2 /lpf Urine Mucus Few None Seen Urine Glucose Normal Normal mg/dL Urine Opiates Screen Neg NEGATIVE Urine Fentanyl Screen Neg NEGATIVE Urine Barbiturates Screen Neg NEGATIVE Urine Phencyclidine Screen Neg NEGATIVE Urine Amphetamines Screen Neg NEGATIVE Urine Benzodiazepines Screen Neg NEGATIVE Urine Cocaine Screen Neg NEGATIVE Urine Cannabinoids Screen Pos NEGATIVE Influenza Type A Antigen Negative Negative Influenza Type B Antigen Negative Negative SARS-CoV-2 Antigen (Rapid) Negative NEGATIVE D-Dimer, Quantitative 0.96 H 0.0-0.49 mg/L FEU Lactic Acid Level 1.5 0.4-2.0 mmol/L Lipase 29 12-53 U/L Assessment Atrial fibrillation-now rate controlled-new onset-chads Vasc score 3 Likely pneumonia, Gram-positive and negative ? Pulmonary embolus Hypertension Transaminitis Liver cyst OCD History of anxiety EKG on arrival, AFib with RVR BNP 899 Plan/Recommendation Given the new onset atrial fibrillation, patient is started on Lovenox 1 mg per kg b.i.d., transition to DOAC on discharge. Atrial fibrillation is likely in the setting of systemic illness and pneumonia. Per Dr. Sanders IR, patient does not have a PE on reviewing of CT angio and patient will be scheduled for repeat CT PE study after 24 hours Follow up with the echocardiogram, lipid panel 10 yaer ASCVD 13.6 - atorvastatin 40mg daily Recommended IV antibiotics for pneumonia Duo nebs q.6 hourly MRSA nares, COVID, flu testing Monitor CMP, GI eval for liver cyst and transaminitis We will continue to follow up Plan discussed with patient in which all questions have been answered Case discussed with Dr. Nicole Plan discussed with: Patient, Spouse (At bedside) Visit Coding Cardiology RES Date of Service: Feb 13, 2025 Billing Provider: KANDY NICOLE MD Cardiology Common Codes: CONSULT ONLY SILVANO TONG RESIDENT Feb 13, 2025 08:51
[2025-02-13] MEDS ORDERED: IPRATROPIUM BROM 0.5 MG/2.5ML INH SOL NEB PRN (12:00)
[2025-02-13] MEDS ORDERED: IPRATROPIUM BROM 0.5 MG/2.5ML INH SOL NEB SCH (12:00)
[2025-02-13] MEDS ORDERED: ALBUTEROL SULF 2.5 MG/0.5ML(0.5%) NEB SOLN NEB SCH (12:00)
[2025-02-13] MEDS ORDERED: ALBUTEROL SULF 2.5 MG/0.5ML(0.5%) NEB SOLN NEB PRN (12:00)
[2025-02-13 12:10] LABS: Triglycerides 75 mg/dL (< 150)
[2025-02-13 12:12] LABS: Cholesterol 142 mg/dL (< 200); HDL Cholesterol 42 mg/dL (40-59)
[2025-02-13] MEDS: POTASSIUM CHL 20 Meq TABLET PO ONE (12:56)
[2025-02-13] MEDS: FUROSEMIDE 20 MG/2 ML VIAL IV ONE (12:56)
[2025-02-13] MEDS: LORazepam 2MG/ML-1ML VIAL IV ONE (13:00)
--- NOTE | 2025-02-13 13:04 | DVHPN2 ---
Subjective Patient continues to report having generalized weakness Reviewed: Care Plan, H&P, Labs, Medications, Previous Orders Changes from previous H/P or p: No Changes General: Per HPI Cardiovascular: Palpitations Respiratory: Shortness of breath Objective Vitals Vital Signs Date Time Temp Pulse Resp B/P (MAP) Pulse Ox O2 Delivery O2 Flow Rate FiO2 02/13/25 11:21 65 18 120/72 98 2.0 28 02/13/25 08:18 Nasal Cannula* 02/13/25 08:00 97.9 97.9 Intake/Output Intake and Output 02/13/25 07:00 Intake Total 1733.32 ml Balance 1733.32 ml Intake IV Total 1733.32 ml General Appearance: Alert, Oriented X3, Cooperative HEENT: Atraumatic, PERRLA Lungs: Clear to auscultation, Normal air movement Cardiovascular: Regular rate, Normal S1, Normal S2, Other (Sinus rhythm) Abdomen: Normal bowel sounds, Soft, No tenderness, No hepatospenomegaly, No masses Musculoskeletal: Normal sensory function, Normal motor function Neuro: Normal speech Skin: Dry, Intact Psych/Mental Status: Mental status NL, Mood NL Medications Current Medications Medications Dose Ordered Sig/Matheus Route Start Time Stop Time Status Last Admin Dose Admin Amiodarone HCl 250 ml @ 16.66 mls/ hr Q15H1M IV 02/12/25 20:30 Ondansetron HCl 4 mg Q4HP PRN IV 02/12/25 16:30 02/13/25 01:33 4 MG Acetaminophen 650 mg Q6HP PRN PO 02/12/25 16:30 Nitroglycerin 0.4 mg Q5MINP PRN SL 02/12/25 16:30 Morphine Sulfate 2 mg Q30M PRN IV 02/12/25 16:30 Melatonin 5 mg HS PO 02/12/25 22:00 02/12/25 22:20 5 MG Losartan Potassium 100 mg DAILY PO 02/13/25 10:00 02/13/25 10:43 100 MG Sertraline HCl 50 mg DAILY PO 02/13/25 10:00 02/13/25 10:43 50 MG Enoxaparin Sodium 60 mg Q12HR SC 02/13/25 11:41 Ceftriaxone Sodium 50 ml @ 100 mls/hr DAILY@09 IV 02/14/25 09:00 Azithromycin 250 ml @ 125 mls/hr DAILY IV 02/14/25 10:00 Albuterol 2.5 mg Q6HPRN PRN NEB 02/13/25 12:00 Ipratropium [place] 0.5 mg Q6HPRN PRN NEB 02/13/25 12:00 Laboratory Results Laboratory Tests 02/13/25 04:35 Chemistry Test 02/12/25 13:29 02/13/25 04:35 Albumin 3.7 g/dL (3.2-4.8) 3.5 g/dL (3.2-4.8) Calcium Level 9.3 mg/dL (8.7-10.4) 8.9 mg/dL (8.7-10.4) Total Protein 6.4 g/dL (5.7-8.2) 5.9 g/dL (5.7-8.2) Magnesium Level 2.4 mg/dL (1.6-2.6) Coagulation Test 02/12/25 13:29 02/13/25 04:35 Prothrombin Time 11.9 sec (9.3-11.8) H 14.7 sec (9.3-11.8) H Prothrombin Time INR 1.14 (0.9-1.15) 1.44 (0.9-1.15) H Activated Partial Thromboplast Time 25.5 SEC (24.5-34.5) 29.2 SEC (24.5-34.5) D-Dimer, Quantitative 0.96 mg/L FEU (0.0-0.49) H Lipid panel Test 02/12/25 13:29 02/13/25 04:35 Lipase 29 U/L (12-53) Cholesterol Level 142 mg/dL (< 200) HDL Cholesterol 42 mg/dL (40-59) Triglycerides Level 75 mg/dL (< 150) Cardiac Markers Test 02/13/25 04:35 B-Type Natriuretic Peptide 899.40 pg/mL (0-100) LFT Test 02/12/25 13:29 02/13/25 04:35 Alanine Aminotransferase (ALT) 156 U/L (7-40) H 1339 U/L (7-40) H Alkaline Phosphatase 142 U/L (46-116) H 141 U/L (46-116) H Aspartate Amino Transferase (AST) 138 U/L (13-40) H 2176 U/L (13-40) H Total Bilirubin 1.2 mg/dL (0.2-1.0) H 1.4 mg/dL (0.2-1.0) H HgA1c, TSH Test 02/13/25 04:35 Thyroid Stimulating Hormone (TSH) 2.07 uIU/mL (0.55-4.78) Urinalysis Test 02/12/25 18:45 Urine Color Yellow (Yellow) Urine Clarity Clear (Clear) Urine pH 5.5 (5.0-9.0) Urine Specific [place] 1.017 (1.001-1.035) Urine Protein Trace (Negative) H Urine Ketones Negative (Negative) Urine Blood Negative /uL (Negative) Urine Nitrite Negative (Negative) Urine Bilirubin Negative (Negative) Urine Urobilinogen Normal mg/dL (Negative) Urine Leukocyte Esterase Negative /uL (Negative) Urine RBC 1 /hpf (0 - 4) Urine Microscopic WBC 4 /HPF (0-5) Urine Squamous Epithelial Cells Few /hpf (<5) Urine Amorphous Crystals Few /hpf (None Seen) Urine Bacteria None seen /hpf (None Seen) Urine Hyaline Casts Few /lpf (0 - 2) Urine Mucus Few (None Seen) Urine Glucose Normal mg/dL (Normal) Microbiology Microbiology Date/Time Source Procedure Growth Status 02/12/25 18:45 Voided Urine Urine Culture - Preliminary Resulted Labs and/or images reviewed: Labs reviewed by me, Image(s) reviewed by me Assessment/Plan Assessment/Plan Impression: -AFib with RVR -leukocytosis, rule out sepsis -pulmonary vascular congestion -pulmonary embolism ruled out -history of OCD -transaminitis, worsening -primary hypertension -acute hypoxic respiratory failure Plan: -stop amiodarone drip -MRCP -echocardiogram -add empiric antibiotic therapy with Zosyn -continue Zoloft -repeat labs in a.m. Total time spent with patient discussing and formulating plan of care: 35 minutes. This medical document was created using an electronic medical record system with [employer] system. Although this document has been carefully reviewed, there may still be some phonetic and typographical errors. These areas are purely typographical due to imperfections of the software programs, and do not reflect any compromise in the patient's medical care. Plan discussed with: Patient, Other (RN) Date of Service: Feb 13, 2025 Billing Provider: CHARISSE MENDOZA NP Common Visit Codes: [id number] INP/OBS CARE(HIGH) CHARISSE MENDOZA NP Feb 13, 2025 13:04
--- NOTE | 2025-02-13 13:17 | DVHINCON2 ---
Date of service: Feb 13, 2025 Referring Physician Edna LIN Reason for Consultation Afib with RVR History of Present Illness This is a 69-year-old female with a PMH of Hypertension, anxiety, OCD, osteoarthritis presented to the ED with a complaint of generalized weakness and shortness of breaths for the past week. Patient is A&O x4, on nasal cannula supplementation 2 L, per patient and , they were experiencing flu-like symptoms for the past week to 10 days, patient reports having diarrhea initially followed by generalized weakness, shortness of breaths on exertion and a dry cough which resolved and then worsened followed which the patient came to the ER. For shortness of breaths, shortness of breaths on exertion, orthopnea but denies PND, denies lower extremity swelling. Denies chest pain, reports palpitations which are chronic, denies abdominal or GI or complaints. They did a COVID test at home which was negative. On arrival to the ER patient was tachycardic, EKG showed AFib with a RVR, reverted to sinus with IV amiodarone drip. COVID flu swabs negative. WBC 15.1, troponin 28. Chest x-ray shows cardiomegaly and pulmonary edema, bilateral pleural effusions. Patient was admitted to the hospital. I am asked to consult on this patient. Allergies: Coded Allergies: Penicillins (Verified Allergy, Mild, 02/13/25) RASH FROM AMPICILLIN Home Meds Active Scripts Prednisone (Prednisone) 20 Mg Tab, 40 MG PO DAILY, #20 TAB Prov:GALINA REYES 10/12/23 Lidocaine (Lidocaine Patch 5%) 5 % Pad, 5 % EX DAILY, #30 PAD Prov:GALINA REYES 10/12/23 Current Medications Current Medications Medications (Trade) Dose Ordered Sig/Matheus Route PRN Reason Start Time Stop Time Status Last Admin Amiodarone HCl 250 ml @ 16.66 mls/ hr Q15H1M IV 02/12/25 20:30 Ondansetron HCl (Zofran) 4 mg Q4HP PRN IV NAUSEA / VOMITING 02/12/25 16:30 02/13/25 01:33 Acetaminophen (Tylenol Tablet) 650 mg Q6HP PRN PO PAIN SCALE 1-3 OR TEMP>100.4 02/12/25 16:30 Nitroglycerin (Ntrostat Sublingual) 0.4 mg Q5MINP PRN SL FOR CHEST PAIN 02/12/25 16:30 Morphine Sulfate 2 mg Q30M PRN IV FOR CHEST PAIN 02/12/25 16:30 Enoxaparin Sodium (Lovenox) 40 mg DAILY SC 02/12/25 16:30 02/13/25 01:16 DC 02/12/25 17:32 Melatonin (Melatonin) 5 mg HS PO 02/12/25 22:00 02/12/25 22:20 Losartan Potassium (Cozaar Tablet) 100 mg DAILY PO 02/13/25 10:00 02/13/25 10:43 Sertraline HCl (Zoloft) 50 mg DAILY PO 02/13/25 10:00 02/13/25 10:43 Enoxaparin Sodium (Lovenox) 60 mg BID SC 02/13/25 10:00 02/13/25 08:00 DC Heparin Sodium/ Dextrose 250 ml @ 10 mls/hr Q24H IV 02/13/25 08:49 02/13/25 10:58 DC Enoxaparin Sodium (Lovenox) 60 mg Q12HR SC 02/13/25 11:41 Ipratropium [place] (Atrovent Medneb) 0.5 mg Q6HWA NEB 02/13/25 12:00 02/13/25 11:42 DC Albuterol (Ventolin Medneb) 2.5 mg Q6HWA NEB 02/13/25 12:00 02/13/25 11:42 DC Ceftriaxone Sodium 50 ml @ 100 mls/hr DAILY@09 IV 02/14/25 09:00 Azithromycin 250 ml @ 125 mls/hr DAILY IV 02/14/25 10:00 Albuterol (Ventolin Medneb) 2.5 mg Q6HPRN PRN NEB SHORTNESS OF BREATH 02/13/25 12:00 UNV Ipratropium [place] (Atrovent Medneb) 0.5 mg Q6HPRN PRN NEB SHORTNESS OF BREATH 02/13/25 12:00 UNV Review of Systems Eyes: No Pain, No Vision change, No Conjunctivae inflammation, No Eyelid inflammation, No Other, No Redness ENT: No Ear pain, No Ear discharge, No Nose pain, No Nose discharge, No Nose congestion, No Mouth pain, No Mouth swelling, No Throat pain, No Throat swelling, No Other Cardiovascular: No Chest Pain, reports Palpitations, No Orthopnea, No PND, No Edema, No Lt Headedness, No Other Respiratory: Reports dry Cough, No Dry, reports Shortness of breath, No SOB with exertion, No Wheezing, No Hemoptysis, No Pleuritic Pain, No Sputum, No Other Gastrointestinal: No Nausea, No Vomiting, No Abdominal Pain, No Diarrhea, No C onstipation, No Melena, No Hematochezia, No Other Genitourinary: No Dysuria, No Frequency, No Incontinence, No Hematuria, No Re tention, No Other Musculoskeletal: No other, No neck pain, No shoulder pain, No arm pain, No back pain, No hand pain, No leg pain, No foot pain Skin: No Rash, No Lesions, No Jaundice, No Bruising, No Other Vital Signs Vital Signs Date Time Temp Pulse Resp B/P (MAP) Pulse Ox O2 Delivery O2 Flow Rate FiO2 02/13/25 11:21 65 18 120/72 98 2.0 28 02/13/25 08:18 Nasal Cannula* 02/13/25 08:00 97.9 97.9 Physical Exam GENERAL: Alert and oriented x 3. No acute distress. EYES: PERRL, EOMI. Anicteric. HENT: Moist mucous membranes. LUNGS: Bilateral crackles. CARDIOVASCULAR: Regular rate and rhythm. ABDOMEN: Soft, nontender and nondistended. EXTREMITIES: No edema. NEUROLOGIC: No focal neurological deficits. SKIN: Warm, dry. Labs/Diagnostic Data Labs Test 02/13/25 04:35 02/12/25 18:45 02/12/25 17:15 02/12/25 13:29 Range/Units White Blood Count 15.1 #H 4.4-10.8 10^3/uL Red Blood Count 3.98 L 4.0-5.20 10^6/uL Hemoglobin 13.4 12.2-16.2 g/dL Hematocrit 39.9 36.0-46.0 % Mean Corpuscular Volume 100.2 H 80.0-100.0 fL Mean Corpuscular Hemoglobin 33.6 H 28.0-32.0 pg Mean Corpuscular Hemoglobin Concent 33.6 32.0-36.0 g/dL Red Cell Distribution Width 14.8 H 11.8-14.3 % Platelet Count 256 140-450 10^3/uL Mean Platelet Volume 7.8 6.9-10.8 fL Neutrophils (%) (Auto) 80.7 H 37.0-80.0 % Lymphocytes (%) (Auto) 11.7 10.0-50.0 % Monocytes (%) (Auto) 7.3 0.0-12.0 % Eosinophils (%) (Auto) 0.1 0.0-7.0 % Basophils (%) (Auto) 0.2 0.0-2.0 % Neutrophils # (Auto) 12.2 H 1.6-8.6 10 ^3/uL Lymphocytes # (Auto) 1.8 0.4-5.4 10 ^3/uL Monocytes # (Auto) 1.1 0-1.3 10 ^3/uL Eosinophils # (Auto) 0 0-0.8 10 ^3/uL Basophils # (Auto) 0 0-0.2 10 ^3/uL Nucleated Red Blood Cells 0.1 % Prothrombin Time 14.7 H 9.3-11.8 sec Prothrombin Time INR 1.44 H 0.9-1.15 Activated Partial Thromboplast Time 29.2 24.5-34.5 SEC Sodium Level 140 136-145 mmol/L Potassium Level 3.8 3.5-5.1 mmol/L Chloride Level 107 98-107 mmol/L Carbon Dioxide Level 20 20-31 mmol/L Anion Gap 13 5-15 Blood Urea Nitrogen 27 H 9-23 mg/dL Creatinine 0.89 0.550-1.02 mg/dL Glomerular Filtration Rate Calc 70 >90 mL/min BUN/Creatinine Ratio 30.3 H 10.0-20.0 Serum Glucose 109 H 74-106 mg/dL Calcium Level 8.9 8.7-10.4 mg/dL Magnesium Level 2.4 1.6-2.6 mg/dL Total Bilirubin 1.4 H 0.2-1.0 mg/dL Aspartate Amino Transferase (AST) 2176 H 13-40 U/L Alanine Aminotransferase (ALT) 1339 H 7-40 U/L Alkaline Phosphatase 141 H 46-116 U/L Troponin I High Sensitivity 28 </=34 ng/L B-Type Natriuretic Peptide 899.40 0-100 pg/mL Total Protein 5.9 5.7-8.2 g/dL Albumin 3.5 3.2-4.8 g/dL Thyroid Stimulating Hormone (TSH) 2.07 0.55-4.78 uIU/mL Urine Color Yellow Yellow Urine Clarity Clear Clear Urine pH 5.5 5.0-9.0 Urine Specific [place] 1.017 1.001-1.035 Urine Protein Trace H Negative Urine Ketones Negative Negative Urine Blood Negative Negative /uL Urine Nitrite Negative Negative Urine Bilirubin Negative Negative Urine Urobilinogen Normal Negative mg/dL Urine Leukocyte Esterase Negative Negative /uL Urine RBC 1 0 - 4 /hpf Urine Microscopic WBC 4 0-5 /HPF Urine Squamous Epithelial Cells Few <5 /hpf Urine Amorphous Crystals Few None Seen /hpf Urine Bacteria None seen None Seen /hpf Urine Hyaline Casts Few 0 - 2 /lpf Urine Mucus Few None Seen Urine Glucose Normal Normal mg/dL Urine Opiates Screen Neg NEGATIVE Urine Fentanyl Screen Neg NEGATIVE Urine Barbiturates Screen Neg NEGATIVE Urine Phencyclidine Screen Neg NEGATIVE Urine Amphetamines Screen Neg NEGATIVE Urine Benzodiazepines Screen Neg NEGATIVE Urine Cocaine Screen Neg NEGATIVE Urine Cannabinoids Screen Pos NEGATIVE Influenza Type A Antigen Negative Negative Influenza Type B Antigen Negative Negative SARS-CoV-2 Antigen (Rapid) Negative NEGATIVE D-Dimer, Quantitative 0.96 H 0.0-0.49 mg/L FEU Lactic Acid Level 1.5 0.4-2.0 mmol/L Lipase 29 12-53 U/L Assessment Atrial fibrillation-now rate controlled-new onset-chads Vasc score 3. Likely pneumonia, Gram-positive and negative. ? Pulmonary embolus. Hypertension. Transaminitis. Liver cyst. OCD. History of anxiety. Plan/Recommendation I agree with your ongoing assessment and care of plan. Patient has been seen by Tao Fontenot Resident on my behalf, we have discussed the plan with the patient. Given the new onset atrial fibrillation, patient is started on Lovenox 1 mg per kg b.i.d., transition to DOAC on discharge. Atrial fibrillation is likely in the setting of systemic illness and pneumonia. Per Dr. Sanders IR, patient does not have a PE on reviewing of CT angio and patient will be scheduled for repeat CT PE study after 24 hours. Follow up with the echocardiogram, lipid panel. Recommended IV antibiotics for pneumonia. Duo nebs q.6 hourly. MRSA nares, COVID, flu testing. Monitor CMP, GI eval for liver cyst and transaminitis. Additional plan as per the hospital course. Plan discussed with: Patient NYHA Physical activity limitations: KANDY POND MD Feb 13, 2025 12:09
[2025-02-13 14:59] LABS: Hepatitis B Surface Antigen Negative (Negative); Hepatitis C Antibody Negative (Negative)
--- NOTE | 2025-02-13 15:24 | DVH ---
MRCP without contrast HISTORY: RULE OUT CHOLEDOCHOLITHIASIS, worsening lft COMPARISON: None Technique: Multiplanar multisequence MRI images were obtained of the abdomen without intravenous cont rast Additional MIPS were obtained of the biliary system. FINDINGS: Bile ducts: -Intrahepatic ducts: Mildly dilated centrally -Extrahepatic ducts: Mildly dilated -Common bile duct: Dilated measuring 1.0 cm, tapering at the ampulla. No obstructing stone or other l esion is seen. -Filling defects: No filling defects -Stricture: Questionable stricture at the ampulla. Gallbladder: No gallstones. No gallbladder distention Pancreas: Pancreatic duct: No ductal dilatation. Lesions: None. Liver: Signal intensity: Homogenous. Contour: Smooth. Size: Normal. Lesions: Multiple fairly simple appearing hepatic cysts measuring up to 5.4 cm. ADDITIONAL FINDINGS: Lung base: At least small bilateral pleural effusions, incompletely visualized. Pancreas: Normal. Spleen:Normal. Bowel: Normal. Adrenal glands:Normal. Kidneys and ureters:Normal. Lymph nodes:Normal. Peritoneum:Normal. Vessels: Normal. Abdominal wall: Normal. Bone: No aggressive bone lesions IMPRESSION: Dilated biliary tree tapering at the ampulla with no stone or other clear obstructing lesion seen. It is difficult to exclude an element of stricturing at the ampulla. If biliary obstruction persists suggest ERCP.
[2025-02-13] MEDS: AZITHROMYCIN 500MG/ 250ML 250 ML IV ONE (15:52)
[2025-02-13] MEDS: PIPERACILLIN-TAZOB 3.375GM 100 ML IV SCH (17:19)
[2025-02-13] MEDS: FUROSEMIDE 20 MG/2 ML VIAL IV SCH (18:20)
[2025-02-13] MEDS ORDERED: ATORVASTATIN 20 MG TAB PO SCH (22:00)
[2025-02-14] VITALS (14 sets, daily range): BP systolic 82–128; BP diastolic 46–67; PULSE 57–129; RESP 19–27; TEMP 97.8–99.1; O2SAT 88–99
--- NOTE | 2025-02-14 03:40 | DVHSR ---
APPROVED REPORT EXAM: Two-dimensional and M-mode echocardiogram with Doppler and color Doppler. Blood Pressure: 119/65 mmHg INDICATION afib RISK FACTORS Height: 5'2, Weight: 124 DIMENSIONS LVDd4.9 (3.8-5.7cm)LA (2D)4.8 (1.9-4.0cm)Aortic Root3.0 (2.0-3.7cm) LVDs4.5 (2.5-4.0cm)LA (MM) (1.9-4.0cm)Aortic Cusp Exc1.2 (1.5-2.0cm) EF (%) 15.0 (55-70%)Rt. Atrium5.3 (1.9-4.0cm)Asc. Aorta3.2 cm IVSd0.7 (0.7-1.1cm)RV (D)4.3 (1.8-2.4cm) PWd0.8 (0.7-1.1cm) Mitral Valve MitralMitral Stenosis E wave1.15m/sMV Mean GR.2mmHg A wavem/sMV Peak GR.105mmHg E/A ratio0.02D MVAcm2 DECEL [id number] 1/2 [place] Aortic Valve Aortic ValveAortic Stenosis V10.93m/Sami Mean GR.3mmHg V21.16m/Sami Peak GR.5mmHg LVOT Diameter1.9 (1.8-2.4cm)Doppler AVA2.27cm2 Pulmonic Valve V20.68m/s Tricuspid Valve TR Velocity3.01m/s [id number] Other Information Technically limited study due to pt SOB sitting up Conclusion MAJOR SYSTOLIC LV DYSFUNCTION LV EF IS ONLY 15% DILATED ALL CARDIAC CHAMBERS AND ALL ARE SEVERELY HYPOKINETIC SEVERE MR MODERATE DEGREE PULMONARY HYPERTENSION RVSP IS 44 MM OF HG AND IS HIGH LARGE PLEURAL EFFUSION
[2025-02-14 05:27] LABS: Hematocrit 38.0 % (36.0-46.0); Hemoglobin 13.0 g/dL (12.2-16.2); Mean Corpuscular Hemoglobin 33.8 pg (28.0-32.0); Mean Corpuscular Volume 98.6 fL (80.0-100.0); Nucleated Red Blood Cells % 0.1 %
[2025-02-14 05:39] LABS: Albumin 3.3 g/dL (3.2-4.8); Anion Gap 11 (5-15); BUN/Creatinine Ratio 22.5 (10.0-20.0); Bilirubin, Total 0.8 mg/dL (0.2-1.0); Carbon Dioxide 26 mmol/L (20-31); Chloride 104 mmol/L (98-107); Glucose 84 mg/dL (74-106); Sodium 141 mmol/L (136-145); Total Protein 5.8 g/dL (5.7-8.2)
[2025-02-14 05:40] LABS: Alanine Aminotransferase 943 U/L (7-40); Alkaline Phosphatase 158 U/L (46-116); Blood Urea Nitrogen 27 mg/dL (9-23); Calcium 8.4 mg/dL (8.7-10.4); Potassium 3.2 mmol/L (3.5-5.1)
[2025-02-14] MEDS ORDERED: AZITHROMYCIN 500MG/ 250ML 250 ML IV SCH (10:00)
[2025-02-14] MEDS ORDERED: POTASSIUM CHL 20 Meq TABLET PO SCH (12:00)
[2025-02-14] MEDS: POTASSIUM EFFERVESENT TAB 25 MEQ PO ONE (12:17)
[2025-02-14] MEDS ORDERED: AMIODARONE BOLUS KIT 100 ML IV ONE (13:45)
[2025-02-14] MEDS: METOPROLOL TARTRATE 25 MG TAB PO ONE (14:11)
[2025-02-14] MEDS: PHENYLEPHRINE IV 250 ML IV SCH (14:15)
[2025-02-14] MEDS: PHENYLEPHRINE IV 250 ML IV ONE (14:29)
--- NOTE | 2025-02-14 14:33 | DVHPN2 ---
Progress Note Date Seen: Feb 14, 2025 Medical Necessity Reason Pt with a Central, PICC or Fol: No Subjective Patient reports: Feels worse (Patient is feeling worse after her about having heart failure. A chest pain shortness breath at this time) Objective vital signs Vital Sign Date Time Temp Pulse Resp B/P (MAP) Pulse Ox O2 Delivery O2 Flow Rate FiO2 02/14/25 14:11 156 90/71 02/14/25 12:00 97.8 23 97 97.8 02/13/25 18:32 Nasal Cannula* 2 28 Total Intake and Output 02/13/25 02/13/25 02/14/25 15:00 23:00 07:00 Intake Total 50 ml 650 ml 87 ml Balance 50 ml 650 ml 87 ml medications Current Medications Medications Dose Ordered Sig/Matheus Route Start Time Stop Time Status Last Admin Dose Admin Ondansetron HCl 4 mg Q4HP PRN IV 02/12/25 16:30 02/13/25 17:32 4 MG Acetaminophen 650 mg Q6HP PRN PO 02/12/25 16:30 Nitroglycerin 0.4 mg Q5MINP PRN SL 02/12/25 16:30 Morphine Sulfate 2 mg Q30M PRN IV 02/12/25 16:30 Melatonin 5 mg HS PO 02/12/25 22:00 02/12/25 22:20 5 MG Losartan Potassium 100 mg DAILY PO 02/13/25 10:00 02/14/25 09:26 100 MG Sertraline HCl 50 mg DAILY PO 02/13/25 10:00 02/14/25 09:25 50 MG Albuterol 2.5 mg Q6HPRN PRN NEB 02/13/25 12:00 Ipratropium [place] 0.5 mg Q6HPRN PRN NEB 02/13/25 12:00 Piperacillin Sod/ Tazobactam Sod 100 ml @ 25 mls/hr Q8HR IV 02/13/25 14:00 02/14/25 06:00 25 MLS/HR Furosemide 20 mg BIDD IV 02/13/25 18:00 02/14/25 11:30 20 MG Potassium Chloride 40 meq Q4HR PO 02/14/25 12:00 02/14/25 20:00 UNV Enoxaparin Sodium 40 mg DAILY SC 02/15/25 10:00 Amiodarone HCl 250 ml @ 16.66 mls/ hr Q15H1M IV 02/14/25 19:45 Phenylephrine HCl 250 ml @ 30 mls/hr Q8H20M IV 02/14/25 14:15 UNV Examination General Appearance: Alert, Oriented X3, Cooperative HEENT: Atraumatic, PERRLA Lungs: Clear to auscultation, Normal air movement Cardiovascular: Irregular rate and regular Abdomen: Normal bowel sounds, Soft, No tenderness, No hepatospenomegaly, No masses Musculoskeletal: Normal sensory function, Normal motor function Neuro: Normal speech Skin: Dry, Intact Psych/Mental Status: Anxious laboratory and microbiology Laboratory Tests 02/14/25 04:46 Test 02/14/25 04:46 Range/Units Serum Glucose 84 74-106 mg/dL Microbiology Date/Time Source Procedure Growth Status 02/12/25 18:45 Voided Urine Urine Culture - Preliminary Resulted 02/12/25 13:38 Blood Blood Culture - Preliminary NO GROWTH AFTER 48 HOURS OF INCUBATION. Resulted Labs and/or images reviewed: Labs reviewed by me, Image(s) reviewed by me Problem List/Assessment/Plan Problem List/Assessment/Plan AFib with RVR -leukocytosis, rule out sepsis -pulmonary vascular congestion -pulmonary embolism ruled out -history of OCD -transaminitis, worsening -primary hypertension Bilateral pleural effusion -acute hypoxic respiratory failure Plan: -stop amiodarone drip -MRCP shows no blockage of the common bile duct. trend lft -echocardiogram shows EF of 10 severe heavy DS function. Started on carvedilol low-dose, Lasix 20 mg IV b.i.d. holding ESR due to a mild ROSALINDA -on empiric antibiotics Zosyn due to elevated WBC Check pro count, CRP Per patient and the patient does not want thoracentesis. Patient gets anxious tachycardic once medical therapy -continue Zoloft Plan discussed with: Patient, Spouse My Orders My Orders Orders - XIMENA OG MD Procedure Category Date Status Time Potassium Effervesent PHA 02/14/25 In Process Tab (Klor-Con/Ef) 16:00 Enoxaparin Sodium PHA 02/15/25 In Process (Lovenox) 10:00 Carvedilol Tablet PHA 02/14/25 Logged (Coreg Tablet) 22:00 Furosemide Injection PHA 02/14/25 Logged (Lasix Injection) 18:00 Date of Service: Feb 14, 2025 Billing Provider: XIMENA OG MD Common Visit Codes: [id number] SAME DATE (HIGH) XIMENA OG MD Feb 14, 2025 14:33
[2025-02-14] MEDS: DIGOXIN (250MCG/ML) 2 ML AMPULE ONE (15:29)
[2025-02-14] MEDS: MAGNESIUM SULFATE 1GM/100ML 100 ML IV ONE (15:32)
[2025-02-14] MEDS: DIGOXIN (250MCG/ML) 2 ML AMPULE IV ONE ×2 (15:44→18:41)
[2025-02-14] MEDS: POTASSIUM EFFERVESENT TAB 25 MEQ GT ONE (16:08)
--- NOTE | 2025-02-14 18:02 | DVHPN2 ---
Consult Progress Note Subjective Other Systems: Patient is in atrial fibrillation with uncontrolled rate on surveillance monitor. Patient denies any cardiac symptoms at time of assessment Objective vital signs Vital Sign Date Time Temp Pulse Resp B/P (MAP) Pulse Ox O2 Delivery O2 Flow Rate FiO2 02/14/25 15:29 144 02/14/25 14:11 90/71 02/14/25 12:00 97.8 23 97 97.8 02/13/25 18:32 Nasal Cannula* 2 28 Total Intake and Output 02/13/25 02/13/25 02/14/25 15:00 23:00 07:00 Intake Total 50 ml 650 ml 87 ml Balance 50 ml 650 ml 87 ml medications Current Medications Medications Dose Ordered Sig/Matheus Route Start Time Stop Time Status Last Admin Dose Admin Ondansetron HCl 4 mg Q4HP PRN IV 02/12/25 16:30 02/13/25 17:32 4 MG Acetaminophen 650 mg Q6HP PRN PO 02/12/25 16:30 Nitroglycerin 0.4 mg Q5MINP PRN SL 02/12/25 16:30 Morphine Sulfate 2 mg Q30M PRN IV 02/12/25 16:30 Melatonin 5 mg HS PO 02/12/25 22:00 02/12/25 22:20 5 MG Losartan Potassium 100 mg DAILY PO 02/13/25 10:00 02/14/25 09:26 100 MG Sertraline HCl 50 mg DAILY PO 02/13/25 10:00 02/14/25 09:25 50 MG Albuterol 2.5 mg Q6HPRN PRN NEB 02/13/25 12:00 Ipratropium [place] 0.5 mg Q6HPRN PRN NEB 02/13/25 12:00 Piperacillin Sod/ Tazobactam Sod 100 ml @ 25 mls/hr Q8HR IV 02/13/25 14:00 02/14/25 16:07 25 MLS/HR Potassium Chloride 40 meq Q4HR PO 02/14/25 12:00 02/14/25 20:00 UNV Enoxaparin Sodium 40 mg DAILY SC 02/15/25 10:00 Phenylephrine HCl 250 ml @ 30 mls/hr Q8H20M IV 02/14/25 14:15 Carvedilol 3.125 mg Q12HR PO 02/14/25 22:00 Furosemide 20 mg BIDD IV 02/14/25 18:00 Examination: GENERAL:Normal, LUNGS:Normal, CVS:Abnormal (Atrial fibrillation with uncontrolled rate), NEURO:Normal laboratory and microbiology Laboratory Tests 02/14/25 04:46 Test 02/14/25 04:46 Range/Units Serum Glucose 84 74-106 mg/dL Problem List/Assessment/Plan Problem List/Assessment/Plan Atrial fibrillation with rapid ventricular response, newly diagnosed De Daniel HFrEF, NYHA class II Severe mitral valve regurgitation Hypertension ?Pulmonary embolism Moderate bilateral pleural effusions Severe pulmonary hypertension Transaminitis Obsessive-compulsive disorder Anxiety Plan/recommendations (): Patient seen and examined at bedside with . A transthoracic echocardiogram reveals an EF of 15%, RVSP 44 mmHg. We will initiate guideline directed medical therapy for CHF as tolerated by patient's blood pressure. Add mineral corticoid receptor agonist (MRA) with stable blood pressure. Continue with preload and afterload reduction. The patient may also benefit from ischemic workup in the future as well as a transesophageal echocardiogram to further evaluate mitral valve. ?[id number] score: 6 points, HAS-BLED score: 2 points. Therapeutic Lovenox, transition to DOAC prior to discharge. Initiate beta-alec for rate control. Avoid antiarrhythmic agent, amiodarone at this time given significant elevation in liver enzymes. Monitor and replete electrolytes as needed, keep potassium greater than four and magnesium greater than two. Continue with close cardiac surveillance. Of note, a chest CTA revealed a large or saddle type pulmonary embolism per radiology report. Radiologist reviewed the image, and per notes stated that there is no pulmonary embolism and suggested a repeat CT angio within 24 hours. Primary team to consider further evaluation. Thank you for allowing us to care for this patient. Please call with any questions or concerns. Critical care time spent: 40 minutes. This medical document was created using an electronic medical record system with voice recognition software and computerized dictation system. Although this document has been carefully reviewed, there might still be some phonetic and typographical errors. Occasional wrong-word or ``sound-alike substitutions may have occurred due to the inherent limitations of voice recognition software. These areas are purely typographical due to imperfections of the software programs and do not reflect any compromise in the patient's medical care. Please read the chart carefully and recognize, using context, where these substitutions have occurred. Plan discussed with: Patient, Spouse Date of Service: Feb 14, 2025 Billing Provider: DAMEON VASQUES Common Visit Codes: [id number] CARE 30-74 MIN DAMEON VASQUES Feb 14, 2025 18:02
[2025-02-14] MEDS: FUROSEMIDE 20 MG/2 ML VIAL IV SCH (18:40)
[2025-02-14] MEDS: EMPAGLIFLOZIN 10 MG TAB PO SCH (18:41)
[2025-02-14] MEDS: METOPROLOL SUCCINATE XL 50 MG TAB PO SCH (18:42)
[2025-02-14] MEDS: ENOXAPARIN SOD 60 MG/0.6 ML SYRINGE SC SCH (21:41)
[2025-02-14] MEDS ORDERED: CARVEDILOL 3.125 MG TAB PO SCH (22:00)
--- NOTE | 2025-02-14 22:52 | DVHPN2 ---
Consult Progress Note Subjective Other Systems: Patient was seen and evaluated in follow up in the [facility]. Patient is in atrial fibrillation with uncontrolled rate on care information associate. Patient denies any cardiac symptoms at time of assessment. WBC 11.7, K 3.2, BUN 27, PRE CODER 1.20, AST 999, ALT 943. Objective vital signs Vital Sign Date Time Temp Pulse Resp B/P (MAP) Pulse Ox O2 Delivery O2 Flow Rate FiO2 02/14/25 18:58 96 Nasal Cannula 2.0 02/14/25 18:58 28 02/14/25 18:42 119 105/60 02/14/25 12:00 97.8 23 97.8 Total Intake and Output 02/13/25 02/13/25 02/14/25 15:00 23:00 07:00 Intake Total 50 ml 650 ml 87 ml Balance 50 ml 650 ml 87 ml medications Current Medications Medications Dose Ordered Sig/Matheus Route Start Time Stop Time Status Last Admin Dose Admin Ondansetron HCl 4 mg Q4HP PRN IV 02/12/25 16:30 02/13/25 17:32 4 MG Acetaminophen 650 mg Q6HP PRN PO 02/12/25 16:30 Nitroglycerin 0.4 mg Q5MINP PRN SL 02/12/25 16:30 Morphine Sulfate 2 mg Q30M PRN IV 02/12/25 16:30 Melatonin 5 mg HS PO 02/12/25 22:00 02/12/25 22:20 5 MG Sertraline HCl 50 mg DAILY PO 02/13/25 10:00 02/14/25 09:25 50 MG Albuterol 2.5 mg Q6HPRN PRN NEB 02/13/25 12:00 Ipratropium [place] 0.5 mg Q6HPRN PRN NEB 02/13/25 12:00 Piperacillin Sod/ Tazobactam Sod 100 ml @ 25 mls/hr Q8HR IV 02/13/25 14:00 02/14/25 16:07 25 MLS/HR Potassium Chloride 40 meq Q4HR PO 02/14/25 12:00 02/14/25 20:00 UNV Phenylephrine HCl 250 ml @ 30 mls/hr Q8H20M IV 02/14/25 14:15 Furosemide 20 mg BIDD IV 02/14/25 18:00 02/14/25 18:40 20 MG Losartan Potassium 50 mg DAILY PO 02/15/25 10:00 Enoxaparin Sodium 60 mg Q12HR SC 02/14/25 22:00 Metoprolol Succinate 25 mg DAILY PO 02/14/25 18:22 02/14/25 18:42 25 MG Empaglifozin 10 mg DAILY PO 02/14/25 18:22 02/14/25 18:41 10 MG Examination: GENERAL:Normal, HEENT:Normal, NECK:Normal, LUNGS:Normal, CVS:Abnormal (Atrial fibrillation with uncontrolled rate), ABDOMEN:Normal, NEURO:Normal laboratory and microbiology Laboratory Tests 02/14/25 04:46 Test 02/14/25 04:46 Range/Units Serum Glucose 84 74-106 mg/dL Problem List/Assessment/Plan Problem List/Assessment/Plan Problem List Atrial fibrillation with rapid ventricular response, newly diagnosed. De Daniel HFrEF, NYHA class II. Severe mitral valve regurgitation. Hypertension. ?Pulmonary embolism. Moderate bilateral pleural effusions. Severe pulmonary hypertension. Transaminitis. Obsessive-compulsive disorder. Anxiety. Plan/Recommendations Continued all current supportive medical care. Patient has been seen by Sandra Herring NP on my behalf, her and I discussed the plan with the patient. A transthoracic echocardiogram reveals an EF of 15%, RVSP 44 mmHg. We will initiate guideline directed medical therapy for CHF as tolerated by patient's blood pressure. Add mineral corticoid receptor agonist (MRA) with stable blood pressure. Continue with preload and afterload reduction. The patient may also benefit from ischemic workup in the future as well as a transesophageal echocardiogram to further evaluate mitral valve. ?[id number] score: 6 points, HAS-BLED score: 2 points. Therapeutic Lovenox, transition to DOAC prior to discharge. Initiate beta-alec for rate control. Avoid antiarrhythmic agent, amiodarone at this time given significant elevation in liver enzymes. Monitor and replete electrolytes as needed, keep potassium greater than four and magnesium greater than two. Continue with close cardiac surveillance. Of note, a chest CTA revealed a large or saddle type pulmonary embolism per radiology report. Radiologist reviewed the image, and per notes stated that there is no pulmonary embolism and suggested a repeat CT angio within 24 hours. Primary team to consider further evaluation. Additional plan as per the hospital course. Plan discussed with: Patient Date of Service: Feb 14, 2025 Billing Provider: KANDY IRBY MD Cardiology Common Codes: [id number] CARE 30-74 MIN KANDY IRBY MD Feb 14, 2025 20:37
[2025-02-15] VITALS (15 sets, daily range): BP systolic 95–123; BP diastolic 47–80; PULSE 80–124; RESP 16–22; TEMP 97.5–98.6; O2SAT 90–97
[2025-02-15 06:04] LABS: Hematocrit 43.2 % (36.0-46.0); Hemoglobin 14.9 g/dL (12.2-16.2); Mean Corpuscular Hemoglobin 34.0 pg (28.0-32.0); Mean Corpuscular Volume 98.3 fL (80.0-100.0); Nucleated Red Blood Cells % 0.0 %
[2025-02-15 06:13] LABS: Albumin 3.4 g/dL (3.2-4.8); Anion Gap 10 (5-15); BUN/Creatinine Ratio 18.0 (10.0-20.0); Blood Urea Nitrogen 22 mg/dL (9-23); Calcium 8.8 mg/dL (8.7-10.4); Carbon Dioxide 31 mmol/L (20-31); Chloride 99 mmol/L (98-107); Glucose 86 mg/dL (74-106); Magnesium 2.1 mg/dL (1.6-2.6); Potassium 3.7 mmol/L (3.5-5.1); Sodium 140 mmol/L (136-145); Total Protein 6.0 g/dL (5.7-8.2)
[2025-02-15 06:15] LABS: Alanine Aminotransferase 702 U/L (7-40); Alkaline Phosphatase 147 U/L (46-116)
[2025-02-15 06:30] LABS: Bilirubin, Total 0.8 mg/dL (0.2-1.0)
[2025-02-15] MEDS ORDERED: ENOXAPARIN SOD 40 MG/0.4 ML SYRINGE SC SCH (10:00)
[2025-02-15] MEDS: LOSARTAN POTASSIUM 50 MG TAB PO SCH (10:00)
[2025-02-15] MEDS ORDERED: LACTATED RINGER'S 1,000 ML IV SCH (11:00)
--- NOTE | 2025-02-15 11:12 | DVH ---
CTA Chest with intravenous contrast INDICATION: Repeat assessment for pulmonary embolism COMPARISON: CT CT ANGIO CHEST CONTRAST on DOS: 02/12/25. TECHNIQUE: Multidetector spiral CTA of the chest was performed of the chest with 100 cc of Omnipaque 350 intravenous contrast. PULMONARY ANGIOGRAPHY PROTOCOL was utilized using a bolus-tracking techniqu e centered on the main pulmonary artery. Coronal and sagittal multiplanar and MIP reformats were perf ormed. Radiation Dose : 1. Chest: CTDI volume is 8.87 mGy. Dose-length product is 312.6 mGy*cm The dose indicators for CT are the volume Computed Tomography (CT) Dose Index (CTDIvol) and the Dose Length Product (DLP), and are measured in units of mGy and mGy-cm, respectively. These indicators are not patient dose, but values generated from the CT scanner acquisition factors. The report includes radiation exposure data for exposures received during this examination. FINDINGS: Pulmonary artery: No central, lobar or proximal segmental pulmonary embolus. Previously characterize d central filling defect not visualized. Lower neck: Unremarkable thyroid. Lungs: Bilateral lower lobe compressive atelectasis. Ground-glass opacities throughout the lungs over all decreased since prior study. Central airways: Patent. Pleura: No pneumothorax. Bilateral pleural effusions are similar to prior study. Heart/Vascular Structures: The heart is enlarged. No pericardial effusion. Thoracic aorta is normal i n caliber. No aneurysm or dissection. Lymph Nodes: No mediastinal or hilar lymphadenopathy. Esophagus:Grossly unremarkable. Musculoskeletal: There is a sclerotic lesion in the T5 vertebral body sclerosis in the L1 inferior en dplate. Body wall: Unremarkable. Upper abdomen: Multiple hepatic cysts. Reflux of contrast into the hepatic veins.. IMPRESSION: 1. No evidence of pulmonary embolism. 2. Bilateral pleural effusions and compressive atelectasis similar to prior study. 3. Ground-glass opacities throughout the lungs overall decreased since prior study. 4. Cardiomegaly. 5. Reflux of contrast into the hepatic veins may be seen with right heart dysfunction. 6. Sclerotic lesions in the T5 vertebral body and L1 inferior endplate.
[2025-02-15] MEDS: SODIUM CHLORIDE 0.9% 1,000 ML IV SCH (11:15)
[2025-02-15] MEDS ORDERED: IOHEXOL 350 MG/ML 100ML IJ ONE (11:25)
--- NOTE | 2025-02-15 13:26 | DVHPN2 ---
Progress Note Date Seen: Feb 15, 2025 Medical Necessity Reason Pt with a Central, PICC or Fol: No Subjective Patient reports: Feels better Changes from previous H/P or p: No Changes Objective vital signs Vital Sign Date Time Temp Pulse Resp B/P (MAP) Pulse Ox O2 Delivery O2 Flow Rate FiO2 02/15/25 12:00 97.5 99 21 99/80 (86) 96 97.5 02/15/25 10:00 Nasal Cannula* 3 32 Total Intake and Output 02/14/25 02/14/25 02/15/25 15:00 23:00 07:00 Intake Total 875 ml 650 ml 50 ml Balance 875 ml 650 ml 50 ml medications Current Medications Medications Dose Ordered Sig/Matheus Route Start Time Stop Time Status Last Admin Dose Admin Ondansetron HCl 4 mg Q4HP PRN IV 02/12/25 16:30 02/13/25 17:32 4 MG Acetaminophen 650 mg Q6HP PRN PO 02/12/25 16:30 Nitroglycerin 0.4 mg Q5MINP PRN SL 02/12/25 16:30 Morphine Sulfate 2 mg Q30M PRN IV 02/12/25 16:30 Melatonin 5 mg HS PO 02/12/25 22:00 02/14/25 21:40 5 MG Sertraline HCl 50 mg DAILY PO 02/13/25 10:00 02/15/25 09:02 50 MG Albuterol 2.5 mg Q6HPRN PRN NEB 02/13/25 12:00 Ipratropium [place] 0.5 mg Q6HPRN PRN NEB 02/13/25 12:00 Piperacillin Sod/ Tazobactam Sod 100 ml @ 25 mls/hr Q8HR IV 02/13/25 14:00 02/15/25 05:57 25 MLS/HR Potassium Chloride 40 meq Q4HR PO 02/14/25 12:00 02/14/25 20:00 UNV Phenylephrine HCl 250 ml @ 30 mls/hr Q8H20M IV 02/14/25 14:15 Furosemide 20 mg BIDD IV 02/14/25 18:00 02/15/25 05:59 20 MG Losartan Potassium 50 mg DAILY PO 02/15/25 10:00 Enoxaparin Sodium 60 mg Q12HR SC 02/14/25 22:00 02/15/25 09:02 60 MG Metoprolol Succinate 25 mg DAILY PO 02/14/25 18:22 02/15/25 09:03 25 MG Empaglifozin 10 mg DAILY PO 02/14/25 18:22 02/15/25 09:02 10 MG Sodium Chloride 1,000 ml @ 100 mls/hr Q10H IV 02/15/25 11:15 02/15/25 11:15 100 MLS/HR Examination General Appearance: Alert, Oriented X3, Cooperative HEENT: Atraumatic, PERRLA Lungs: Clear to auscultation, Normal air movement Cardiovascular: Irregular rate and regular Abdomen: Normal bowel sounds, Soft, No tenderness, No hepatospenomegaly, No masses Musculoskeletal: Normal sensory function, Normal motor function Neuro: Normal speech Skin: Dry, Intact Psych/Mental Status: Anxious laboratory and microbiology Laboratory Tests 02/15/25 04:46 Test 02/15/25 04:46 Range/Units Serum Glucose 86 74-106 mg/dL Microbiology Date/Time Source Procedure Growth Status 02/13/25 11:50 Nose MRSA Screen - Final Complete 02/12/25 18:45 Voided Urine Urine Culture - Final Complete 02/12/25 13:38 Blood Blood Culture - Preliminary NO GROWTH AFTER 48 HOURS OF INCUBATION. Resulted Labs and/or images reviewed: Labs reviewed by me, Image(s) reviewed by me Problem List/Assessment/Plan Problem List/Assessment/Plan AFib with RVR -leukocytosis, rule out sepsis -pulmonary vascular congestion -pulmonary embolism ruled out -history of OCD -transaminitis, worsening -primary hypertension Bilateral pleural effusion -acute hypoxic respiratory failure Plan: -stop amiodarone drip -MRCP shows no blockage of the common bile duct. trend lft -echocardiogram shows EF of 10 severe LV dysfunction. Cardiology started on GDMT Lovenox for anticoagulation. switch to DOAC prior to discharge. Repeat CTA chest negative for PE. diuresis per cardiology Per patient and the patient does not want thoracentesis. Patient gets anxious tachycardic once medical therapy -continue Zoloft DC home when cleared by cardiology Plan discussed with: Patient, Spouse My Orders My Orders Orders - XIMENA OG MD Procedure Category Date Status Time Furosemide Injection PHA 02/14/25 In Process (Lasix Injection) 18:00 Comprehensive LAB 02/16/25 Verified Metabolic Panel 05:00 Comprehensive LAB 02/17/25 Verified Metabolic Panel 05:00 Comprehensive LAB 02/18/25 Verified Metabolic Panel 05:00 Comprehensive LAB 02/19/25 Verified Metabolic Panel 05:00 Complete Blood Count LAB 02/16/25 Verified 05:00 Complete Blood Count LAB 02/17/25 Verified 05:00 Complete Blood Count LAB 02/18/25 Verified 05:00 Complete Blood Count LAB 02/19/25 Verified 05:00 Magnesium LAB 02/16/25 Verified 05:00 Magnesium LAB 02/17/25 Verified 05:00 Magnesium LAB 02/18/25 Verified 05:00 Magnesium LAB 02/19/25 Verified 05:[address] 02/15/25 Resulted Contrast 09:24 Sodium Chloride 0.9% PHA 02/15/25 In Process 11:15 Date of Service: Feb 15, 2025 Billing Provider: XIMENA OG MD Common Visit Codes: [id number] SAME DATE (HIGH) XIMENA OG MD Feb 15, 2025 13:26
--- NOTE | 2025-02-15 23:05 | DVHPN2 ---
Progress Note - Dictate Date Seen: Feb 15, 2025 Medical Necessity Reason Pt with a Central, PICC or Fol: No Subjective Patient was seen and evaluated in follow up in the [facility]. Per patient and the patient does not want to undergo thoracentesis. Patient reports she gets anxious and tachycardic during medical therapy. SAW REPAIRER 1.22, AST 432, ALT 702. CTA chest showed bilateral pleural effusions and compressive atelectasis similar to prior study. Ground-glass opacities throughout the lungs overall decreased since prior study. Cardiomegaly. Reflux of contrast into the hepatic veins may be seen with right heart dysfunction. Sclerotic lesions in the T5 vertebral body and L1 inferior endplate. vital signs Vital Sign Date Time Temp Pulse Resp B/P (MAP) Pulse Ox O2 Delivery O2 Flow Rate FiO2 02/15/25 17:47 115/69 02/15/25 16:00 98.1 90 16 97 98.1 02/15/25 10:00 Nasal Cannula* 3 32 Total Intake and Output 02/14/25 02/14/25 02/15/25 15:00 23:00 07:00 Intake Total 875 ml 650 ml 50 ml Balance 875 ml 650 ml 50 ml medications Current Medications Medications Dose Ordered Sig/Matheus Route Start Time Stop Time Status Last Admin Dose Admin Ondansetron HCl 4 mg Q4HP PRN IV 02/12/25 16:30 02/13/25 17:32 4 MG Acetaminophen 650 mg Q6HP PRN PO 02/12/25 16:30 Nitroglycerin 0.4 mg Q5MINP PRN SL 02/12/25 16:30 Morphine Sulfate 2 mg Q30M PRN IV 02/12/25 16:30 Melatonin 5 mg HS PO 02/12/25 22:00 02/14/25 21:40 5 MG Sertraline HCl 50 mg DAILY PO 02/13/25 10:00 02/15/25 09:02 50 MG Albuterol 2.5 mg Q6HPRN PRN NEB 02/13/25 12:00 Ipratropium [place] 0.5 mg Q6HPRN PRN NEB 02/13/25 12:00 Piperacillin Sod/ Tazobactam Sod 100 ml @ 25 mls/hr Q8HR IV 02/13/25 14:00 02/15/25 05:57 25 MLS/HR Potassium Chloride 40 meq Q4HR PO 02/14/25 12:00 02/14/25 20:00 UNV Phenylephrine HCl 250 ml @ 30 mls/hr Q8H20M IV 02/14/25 14:15 Furosemide 20 mg BIDD IV 02/14/25 18:00 02/15/25 17:47 20 MG Losartan Potassium 50 mg DAILY PO 02/15/25 10:00 Enoxaparin Sodium 60 mg Q12HR SC 02/14/25 22:00 02/15/25 09:02 60 MG Metoprolol Succinate 25 mg DAILY PO 02/14/25 18:22 02/15/25 09:03 25 MG Empaglifozin 10 mg DAILY PO 02/14/25 18:22 02/15/25 09:02 10 MG Sodium Chloride 1,000 ml @ 100 mls/hr Q10H IV 02/15/25 11:15 02/15/25 20:07 100 MLS/HR objective GENERAL: Alert and oriented x 3. No acute distress. EYES: PERRL, EOMI. Anicteric. HENT: Moist mucous membranes. LUNGS: Bilateral crackles. CARDIOVASCULAR: Regular rate and rhythm. ABDOMEN: Soft, nontender and nondistended. EXTREMITIES: No edema. NEUROLOGIC: No focal neurological deficits. SKIN: Warm, dry. laboratory and microbiology Laboratory Tests 02/15/25 04:46 Test 02/15/25 04:46 Range/Units Serum Glucose 86 74-106 mg/dL Problem List Atrial fibrillation with rapid ventricular response, newly diagnosed. De Daniel HFrEF, NYHA class II. Severe mitral valve regurgitation. Hypertension. ?Pulmonary embolism. Moderate bilateral pleural effusions. Severe pulmonary hypertension. Transaminitis. Obsessive-compulsive disorder. Anxiety. Assessment/Plan Continued all current supportive medical care. DVT prophylactics. Diuretics with Lasix. Losartan. Metoprolol. Morphine and [facility] for pain management. IV antibiotics as ordered. Nitro SL. Additional plan as per the hospital course. Dietary Evaluation Review Comments: 1) Continue cardiac diet 2) Encourage optimal PO intake 3) Follow-up with cardiology 4) Continue to monitor I&O, labs, and skin integrity Expected Outcomes/Goals: 1) appetite and labs to improve 2) f/u in 3-5 days Plan discussed with: Patient KANDY IRBY MD Feb 15, 2025 21:26
[2025-02-16] VITALS (25 sets, daily range): BP systolic 102–139; BP diastolic 62–105; PULSE 73–128; RESP 12–25; TEMP 98.1–99.3; O2SAT 79–99
[2025-02-16] MEDS: METOPROLOL SUCCINATE XL 50 MG TAB PO SCH (01:26)
[2025-02-16 07:35] LABS: Hematocrit 45.4 % (36.0-46.0); Hemoglobin 15.4 g/dL (12.2-16.2); Mean Corpuscular Hemoglobin 33.5 pg (28.0-32.0); Mean Corpuscular Volume 98.6 fL (80.0-100.0); Nucleated Red Blood Cells % 0.1 %
[2025-02-16 07:53] LABS: Anion Gap 12 (5-15); BUN/Creatinine Ratio 12.3 (10.0-20.0); Blood Urea Nitrogen 14 mg/dL (9-23); Calcium 8.9 mg/dL (8.7-10.4); Carbon Dioxide 28 mmol/L (20-31); Chloride 101 mmol/L (98-107); Glucose 90 mg/dL (74-106); Magnesium 2.2 mg/dL (1.6-2.6); Potassium 3.8 mmol/L (3.5-5.1); Sodium 141 mmol/L (136-145); Total Protein 6.4 g/dL (5.7-8.2)
[2025-02-16 07:54] LABS: Albumin 3.5 g/dL (3.2-4.8); Bilirubin, Total 0.7 mg/dL (0.2-1.0)
[2025-02-16 07:56] LABS: Alanine Aminotransferase 500 U/L (7-40); Alkaline Phosphatase 134 U/L (46-116)
--- NOTE | 2025-02-16 10:05 | DVHPN2 ---
Progress Note Date Seen: Feb 16, 2025 Resident Creating Document: SILVANO TONG RESIDENT Medical Necessity Reason Pt with a Central, PICC or Fol: No Subjective Review of Systems 69-year-old female presented to the ER with a chief complaint of generalized weakness and shortness of breaths for the past week. Patient is A&O x4, on nasal cannula supplementation 2 L, per patient and , they were experiencing flu-like symptoms for the past week to 10 days, patient reports having diarrhea initially followed by generalized weakness, shortness of breaths on exertion and a dry cough which resolved and then worsened followed which the patient came to the ER. For shortness of breaths, shortness of breaths on exertion, orthopnea but denies PND, denies lower extremity swelling. Denies chest pain, reports palpitations which are chronic, denies abdominal or GI or complaints. They did a COVID test at home which was negative. On arrival to the ER patient was tachycardic, EKG showed AFib with a RVR, reverted to sinus with IV amiodarone drip. COVID flu swabs negative. Past medical history: Hypertension, anxiety, OCD, osteoarthritis Past surgical history: None Home medication: Losartan 100 mg daily, Motrin Social history: Lives in [place] with the , denies smoking, drinking, drug use 02/16 - Patient seen and examined, reports no acute complaints, feels better Objective vital signs Vital Sign Date Time Temp Pulse Resp B/P (MAP) Pulse Ox O2 Delivery O2 Flow Rate FiO2 02/16/25 09:18 120/78 02/16/25 09:17 92 02/16/25 08:00 99.3 20 95 99.3 02/16/25 06:00 Nasal Cannula* 1 24 Total Intake and Output 02/15/25 02/15/25 02/16/25 15:00 23:00 07:00 Intake Total 500 ml 812 ml 900 ml Balance 500 ml 812 ml 900 ml medications Current Medications Medications Dose Ordered Sig/Matheus Route Start Time Stop Time Status Last Admin Dose Admin Ondansetron HCl 4 mg Q4HP PRN IV 02/12/25 16:30 02/13/25 17:32 4 MG Acetaminophen 650 mg Q6HP PRN PO 02/12/25 16:30 Nitroglycerin 0.4 mg Q5MINP PRN SL 02/12/25 16:30 Morphine Sulfate 2 mg Q30M PRN IV 02/12/25 16:30 Melatonin 5 mg HS PO 02/12/25 22:00 02/15/25 22:33 5 MG Sertraline HCl 50 mg DAILY PO 02/13/25 10:00 02/16/25 09:17 50 MG Albuterol 2.5 mg Q6HPRN PRN NEB 02/13/25 12:00 Ipratropium [place] 0.5 mg Q6HPRN PRN NEB 02/13/25 12:00 Piperacillin Sod/ Tazobactam Sod 100 ml @ 25 mls/hr Q8HR IV 02/13/25 14:00 02/16/25 06:31 25 MLS/HR Potassium Chloride 40 meq Q4HR PO 02/14/25 12:00 02/14/25 20:00 UNV Phenylephrine HCl 250 ml @ 30 mls/hr Q8H20M IV 02/14/25 14:15 Furosemide 20 mg BIDD IV 02/14/25 18:00 02/16/25 06:30 20 MG Losartan Potassium 50 mg DAILY PO 02/15/25 10:00 02/16/25 09:18 50 MG Enoxaparin Sodium 60 mg Q12HR SC 02/14/25 22:00 02/16/25 09:19 60 MG Empaglifozin 10 mg DAILY PO 02/14/25 18:22 02/16/25 09:18 10 MG Sodium Chloride 1,000 ml @ 100 mls/hr Q10H IV 02/15/25 11:15 02/16/25 06:31 100 MLS/HR Metoprolol Succinate 25 mg BID PO 02/16/25 00:30 02/16/25 09:17 25 MG Examination Patient lying in bed, in no acute distress General: Well-built, afebrile, palor, mucosae are moist Cardiovascular: Regular S1 and S2. No murmurs, gallops or rubs. No JVD elevation. Minimal pedal edema Respiratory: reduced Bilateral crackles heard on auscultation, no wheezing or stridor heard, on room air Abdomen: Soft, nontender, nondistended, normoactive bowel sounds, no rebound tenderness, no organomegaly, no masses Genitourinary: Deferred MSK/skin: Mobilizes 4 limbs. Skin is dry and warm Neurological: No motor, no sensitive deficits, normal speech. Pupils are isocoric and reactive. Psych/Mental Status: A/Ox3 laboratory and microbiology Laboratory Tests 02/16/25 06:11 02/16/25 05:00 Test 02/16/25 05:00 Range/Units Serum Glucose 90 74-106 mg/dL Microbiology Date/Time Source Procedure Growth Status 02/13/25 11:50 Nose MRSA Screen - Final Complete 02/12/25 18:45 Voided Urine Urine Culture - Final Complete 02/12/25 13:38 Blood Blood Culture - Preliminary NO GROWTH AFTER 72 HOURS OF INCUBATION. Resulted Labs and/or images reviewed: Labs reviewed by me, Image(s) reviewed by me Problem List/Assessment/Plan Problem List/Assessment/Plan Atrial fibrillation-now rate controlled-new onset-chads Vasc score 4 De Daniel HFrEF, NYHA class II Likely pneumonia, Gram-positive and negative ? Pulmonary embolus Moderate bilateral pleural effusions Severe pulmonary hypertension Hypertension Transaminitis Liver cyst OCD History of anxiety EKG on arrival, AFib with RVR BNP 899 Plan/Recommendation Given the new onset atrial fibrillation, continue Lovenox 1 mg per kg b.i.d., transition to DOAC on discharge. Continue metoprolol, losartan, jardiance. Avoid antiarrhythmic agent, amiodarone at this time given significant elevation in liver enzymes. Consider spironolactone if Cr improves Ppatient may also benefit from ischemic workup in the future as well as a transesophageal echocardiogram to further evaluate mitral valve. Echocardiogram reveals an EF of 15%, RVSP 44 mmHg. Repeat CTA negative for PE Monitor and replete electrolytes as needed, keep potassium greater than four and magnesium greater than two. 10 year ASCVD 13.6 - atorvastatin 40mg daily once LFTs stabilize Recommended IV antibiotics for pneumonia Duo nebs q.6 hourly MRSA nares, COVID, flu testing Monitor CMP, GI eval for liver cyst and transaminitis We will continue to follow up Plan discussed with patient in which all questions have been answered Case discussed with Dr. Irby Plan discussed with: Patient Dietary Evaluation Review Comments: 1) Continue cardiac diet 2) Encourage optimal PO intake 3) Follow-up with cardiology 4) Continue to monitor I&O, labs, and skin integrity Expected Outcomes/Goals: 1) appetite and labs to improve 2) f/u in 3-5 days Visit Coding Cardiology RES Date of Service: Feb 16, 2025 Billing Provider: KANDY IRBY MD Cardiology Common Codes: [id number](SILVANO Abreu RESIDENT Feb 16, 2025 10:05
--- NOTE | 2025-02-16 11:00 | DVHPN2 ---
Subjective Patient continues to report having generalized weakness Reviewed: Care Plan, H&P, Labs, Medications, Previous Orders Changes from previous H/P or p: No Changes General: Per HPI Cardiovascular: Palpitations Respiratory: Shortness of breath Objective Vitals Vital Signs Date Time Temp Pulse Resp B/P (MAP) Pulse Ox O2 Delivery O2 Flow Rate FiO2 02/16/25 09:18 120/78 02/16/25 09:17 92 02/16/25 08:00 99.3 20 95 99.3 02/16/25 06:00 Nasal Cannula* 1 24 Intake/Output Intake and Output 02/16/25 07:00 Intake Total 2212 ml Balance 2212 ml IV Total 2212 ml General Appearance: Alert, Oriented X3, Cooperative HEENT: Atraumatic, PERRLA Lungs: Clear to auscultation, Normal air movement Cardiovascular: Normal S1, Normal S2, Other (Atrial fibrillation) Abdomen: Normal bowel sounds, Soft, No tenderness, No hepatospenomegaly, No masses Genitourinary: No Apparent Abnormalities Musculoskeletal: Normal sensory function, Normal motor function Neuro: Normal speech Skin: Dry, Intact Psych/Mental Status: Mental status NL, Mood NL Medications Current Medications Medications Dose Ordered Sig/Matheus Route Start Time Stop Time Status Last Admin Dose Admin Ondansetron HCl 4 mg Q4HP PRN IV 02/12/25 16:30 02/13/25 17:32 4 MG Acetaminophen 650 mg Q6HP PRN PO 02/12/25 16:30 Nitroglycerin 0.4 mg Q5MINP PRN SL 02/12/25 16:30 Morphine Sulfate 2 mg Q30M PRN IV 02/12/25 16:30 Melatonin 5 mg HS PO 02/12/25 22:00 02/15/25 22:33 5 MG Sertraline HCl 50 mg DAILY PO 02/13/25 10:00 02/16/25 09:17 50 MG Albuterol 2.5 mg Q6HPRN PRN NEB 02/13/25 12:00 Ipratropium [place] 0.5 mg Q6HPRN PRN NEB 02/13/25 12:00 Piperacillin Sod/ Tazobactam Sod 100 ml @ 25 mls/hr Q8HR IV 02/13/25 14:00 02/16/25 06:31 25 MLS/HR Potassium Chloride 40 meq Q4HR PO 02/14/25 12:00 02/14/25 20:00 UNV Phenylephrine HCl 250 ml @ 30 mls/hr Q8H20M IV 02/14/25 14:15 Furosemide 20 mg BIDD IV 02/14/25 18:00 02/16/25 06:30 20 MG Losartan Potassium 50 mg DAILY PO 02/15/25 10:00 02/16/25 09:18 50 MG Enoxaparin Sodium 60 mg Q12HR SC 02/14/25 22:00 02/16/25 09:19 60 MG Empaglifozin 10 mg DAILY PO 02/14/25 18:22 02/16/25 09:18 10 MG Metoprolol Succinate 25 mg DAILY PO 02/17/25 10:00 UNV Laboratory Results Laboratory Tests 02/16/25 05:00 02/16/25 06:11 Chemistry Test 02/16/25 05:00 Albumin 3.5 g/dL (3.2-4.8) Calcium Level 8.9 mg/dL (8.7-10.4) Magnesium Level 2.2 mg/dL (1.6-2.6) Total Protein 6.4 g/dL (5.7-8.2) LFT Test 02/16/25 05:00 Alanine Aminotransferase (ALT) 500 U/L (7-40) H Alkaline Phosphatase 134 U/L (46-116) H Aspartate Amino Transferase (AST) 199 U/L (13-40) H Total Bilirubin 0.7 mg/dL (0.2-1.0) Urinalysis Test 02/12/25 18:45 Urine Color Yellow (Yellow) Urine Clarity Clear (Clear) Urine pH 5.5 (5.0-9.0) Urine Specific [place] 1.017 (1.001-1.035) Urine Protein Trace (Negative) H Urine Ketones Negative (Negative) Urine Blood Negative /uL (Negative) Urine Nitrite Negative (Negative) Urine Bilirubin Negative (Negative) Urine Urobilinogen Normal mg/dL (Negative) Urine Leukocyte Esterase Negative /uL (Negative) Urine RBC 1 /hpf (0 - 4) Urine Microscopic WBC 4 /HPF (0-5) Urine Squamous Epithelial Cells Few /hpf (<5) Urine Amorphous Crystals Few /hpf (None Seen) Urine Bacteria None seen /hpf (None Seen) Urine Hyaline Casts Few /lpf (0 - 2) Urine Mucus Few (None Seen) Urine Glucose Normal mg/dL (Normal) Microbiology Microbiology Date/Time Source Procedure Growth Status 02/13/25 11:50 Nose MRSA Screen - Final Complete 02/12/25 18:45 Voided Urine Urine Culture - Final Complete 02/12/25 13:38 Blood Blood Culture - Preliminary NO GROWTH AFTER 72 HOURS OF INCUBATION. Resulted Labs and/or images reviewed: Labs reviewed by me, Image(s) reviewed by me Assessment/Plan Assessment/Plan Impression: -AFib with RVR -leukocytosis, rule out sepsis -pulmonary vascular congestion -pulmonary embolism ruled out -history of OCD -transaminitis, worsening -primary hypertension -acute hypoxic respiratory failure -questionable cardiac hepatitis Plan: -change rate controlled to metoprolol tartrate 25 mg p.o. b.i.d. -MRCP : Results reviewed -cardiology consultation: Discussed with Cardiology resident. No plans for left heart catheterization at this time. -echocardiogram: Four-chamber enlargement with MR and ejection fraction 15% as well as pulmonary hypertension -stop Zosyn given no growth. Urine culture contaminated. Start Keflex 500 mg p.o. b.i.d. -titrate guideline directed medical therapy for heart failure -stop Lovenox, start Eliquis. -continue Zoloft -repeat chest x-ray today -repeat labs in a.m. Critical care time spent with patient discussing and formulating plan of care: 40 minutes. This does not include time spent performing procedures. This medical document was created using an electronic medical record system with [employer] dictation system. Although this document has been carefully reviewed, there may still be some phonetic and typographical errors. These areas are purely typographical due to imperfections of the software programs, and do not reflect any compromise in the patient's medical care. Plan discussed with: Patient, Other (RN) My Orders Orders - CHARISSE MENDOZA NP Procedure Category Date Status Time Metoprolol Xl PHA 02/17/25 Logged Succinate (Toprol Xl) 10:00 Metoprolol Tartrate PHA 02/16/25 Verified Tablet (Lopressor Ta 22:00 Cephalexin Capsule PHA 02/16/25 Verified (Keflex Capsule) 22:00 Date of Service: Feb 16, 2025 Billing Provider: CHARISSE MENDOZA NP Common Visit Codes: [id number] CARE 30-74 MIN CHARISSE MENDOZA NP Feb 16, 2025 11:00
[2025-02-16] MEDS: POTASSIUM CHL 20 Meq TABLET PO ONE (12:45)
[2025-02-16] MEDS ORDERED: INFLUENZA TRIVALENT 2024-2025 0.5 ML INJ IM ONE (14:15)
[2025-02-16] MEDS: METOPROLOL TARTRATE 25 MG TAB PO ONE (15:04)
[2025-02-16] MEDS: PNEUMOCOCCAL VACC POLYS 25 MCG/0.5 ML VIAL IM ONE (15:35)
--- NOTE | 2025-02-16 19:52 | DVH ---
CHEST RADIOGRAPH Indication: Bilateral Pleural Effusion Technique: Single frontal view of the chest was obtained COMPARISON: XY CHEST PORTABLE on DOS: 02/12/25 FINDINGS: Cardiac silhouette is enlarged. No overt pulmonary edema. Mildly improved aeration at the left lung base with mild residual dense atelectasis/ consolidation an d probable trace left-sided pleural effusion. Minimal right basilar atelectasis /consolidation. IMPRESSION: Suspect slight interval improvement in the left-sided pleural effusion and left basilar atelectasis / consolidation. Also suspect slight interval improvement in the right-sided effusion, now either resolved or trace.
[2025-02-16] MEDS: CEPHALEXIN 250 MG CAP PO SCH (20:56)
[2025-02-16] MEDS: METOPROLOL TARTRATE 25 MG TAB PO SCH (20:57)
[2025-02-17] VITALS (11 sets, daily range): BP systolic 122–143; BP diastolic 40–88; PULSE 74–117; RESP 12–25; TEMP 98–98.1; O2SAT 92–99
--- NOTE | 2025-02-17 00:25 | DVHPN2 ---
Consult Progress Note Date Seen: Feb 16, 2025 Subjective Other Systems: Patient was seen and evaluated in follow up in the [facility]. Patient reports no acute complaints, feels better today. AST 199, ALT 500, ALK PHOS 134. Objective vital signs Vital Sign Date Time Temp Pulse Resp B/P (MAP) Pulse Ox O2 Delivery O2 Flow Rate FiO2 02/16/25 22:00 17 95 Room Air* 0 21 02/16/25 22:00 96 02/16/25 22:00 127/67 (87) 02/16/25 20:00 98.2 98.2 Total Intake and Output 02/16/25 02/16/25 02/17/25 15:00 23:00 07:00 Intake Total 450 ml Balance 450 ml medications Current Medications Medications Dose Ordered Sig/Matheus Route Start Time Stop Time Status Last Admin Dose Admin Ondansetron HCl 4 mg Q4HP PRN IV 02/12/25 16:30 02/13/25 17:32 4 MG Acetaminophen 650 mg Q6HP PRN PO 02/12/25 16:30 Nitroglycerin 0.4 mg Q5MINP PRN SL 02/12/25 16:30 Morphine Sulfate 2 mg Q30M PRN IV 02/12/25 16:30 Melatonin 5 mg HS PO 02/12/25 22:00 02/16/25 20:56 5 MG Sertraline HCl 50 mg DAILY PO 02/13/25 10:00 02/16/25 09:17 50 MG Albuterol 2.5 mg Q6HPRN PRN NEB 02/13/25 12:00 Ipratropium [place] 0.5 mg Q6HPRN PRN NEB 02/13/25 12:00 Potassium Chloride 40 meq Q4HR PO 02/14/25 12:00 02/14/25 20:00 UNV Phenylephrine HCl 250 ml @ 30 mls/hr Q8H20M IV 02/14/25 14:15 Furosemide 20 mg BIDD IV 02/14/25 18:00 02/16/25 18:53 20 MG Losartan Potassium 50 mg DAILY PO 02/15/25 10:00 02/16/25 09:18 50 MG Empaglifozin 10 mg DAILY PO 02/14/25 18:22 02/16/25 09:18 10 MG Metoprolol Succinate 25 mg DAILY PO 02/17/25 10:00 UNV Metoprolol Tartrate 25 mg BID PO 02/16/25 22:00 02/16/25 20:57 25 MG Cephalexin 500 mg BID PO 02/16/25 22:00 02/16/25 20:56 500 MG Examination: GENERAL:Normal, HEENT:Normal, NECK:Normal, LUNGS:Abnormal (), CVS:Normal, ABDOMEN:Normal, MSK:Normal, SKIN:Normal, NEURO:Normal laboratory and microbiology Laboratory Tests 02/16/25 06:11 02/16/25 05:00 Test 02/16/25 05:00 Range/Units Serum Glucose 90 74-106 mg/dL Problem List/Assessment/Plan Problem List/Assessment/Plan Atrial fibrillation-now rate controlled-new onset. De Daniel HFrEF, NYHA class II. Severe mitral valve regurgitation. Hypertension. ?Pulmonary embolism. Moderate bilateral pleural effusions. Severe pulmonary hypertension. Transaminitis. Obsessive compulsive disorder. Anxiety. Liver cyst. Hypertension. Likely pneumonia, Gram-positive and negative. Plan/Recommendation Continued all current supportive medical care. Patient has been seen by Redd Fontenot, Resident on my behalf. We have discussed the plan with the patient. Given the new onset atrial fibrillation, continue Lovenox 1 mg per kg b.i.d., transition to DOAC on discharge. Continue metoprolol, losartan, jardiance. Avoid antiarrhythmic agent, amiodarone at this time given significant elevation in liver enzymes. Consider spironolactone if Cr improves. Patient may also benefit from ischemic workup in the future as well as a transesophageal echocardiogram to further evaluate mitral valve. Echocardiogram reveals an EF of 15%, RVSP 44 mmHg. Repeat CTA negative for PE. Monitor and replete electrolytes as needed, keep potassium greater than four and magnesium greater than two. 10 year ASCVD 13.6 - atorvastatin 40mg daily once LFTs stabilize. Recommended IV antibiotics for pneumonia. Duo nebs q.6 hourly. MRSA nares, COVID, flu testing. Monitor CMP, GI eval for liver cyst and transaminitis. Continued all current supportive medical care. Plan discussed with: Patient Dietary Evaluation Review Comments: 1) Continue cardiac diet 2) Encourage optimal PO intake 3) Follow-up with cardiology 4) Continue to monitor I&O, labs, and skin integrity Expected Outcomes/Goals: 1) appetite and labs to improve 2) f/u in 3-5 days Date of Service: Feb 16, 2025 Billing Provider: KANDY IRBY MD Cardiology Common Codes: [id number] HOSP CARE(High KANDY IRBY MD Feb 17, 2025 00:25
[2025-02-17 07:19] LABS: Hemoglobin 15.3 g/dL (12.2-16.2); Nucleated Red Blood Cells % 0.1 %
[2025-02-17 07:21] LABS: Hematocrit 43.9 % (36.0-46.0); Mean Corpuscular Hemoglobin 34.3 pg (28.0-32.0); Mean Corpuscular Volume 98.5 fL (80.0-100.0)
[2025-02-17 07:32] LABS: Albumin 3.7 g/dL (3.2-4.8); Anion Gap 12 (5-15); BUN/Creatinine Ratio 16.7 (10.0-20.0); Bilirubin, Total 0.8 mg/dL (0.2-1.0); Blood Urea Nitrogen 15 mg/dL (9-23); Calcium 9.3 mg/dL (8.7-10.4); Carbon Dioxide 30 mmol/L (20-31); Chloride 99 mmol/L (98-107); Glucose 81 mg/dL (74-106); Magnesium 2.2 mg/dL (1.6-2.6); Potassium 3.7 mmol/L (3.5-5.1); Sodium 141 mmol/L (136-145); Total Protein 6.6 g/dL (5.7-8.2)
[2025-02-17 07:33] LABS: Alanine Aminotransferase 380 U/L (7-40); Alkaline Phosphatase 124 U/L (46-116)
[2025-02-17] MEDS ORDERED: METOPROLOL SUCCINATE XL 50 MG TAB PO SCH (10:00)
[2025-02-17] MEDS: POTASSIUM CHL 20 Meq TABLET PO ONE (10:11)
[2025-02-17] MEDS ORDERED: FURO1TAB33 PO (10:38)
[2025-02-17] MEDS ORDERED: EMPA1TAB PO (10:38)
[2025-02-17] MEDS ORDERED: LOSA-534 PO (10:38)
[2025-02-17] MEDS ORDERED: APIX5TAB PO (10:38)
[2025-02-17] MEDS ORDERED: POTA-36 PO (10:38)
[2025-02-17] MEDS ORDERED: METO25TA5 PO (10:38)
[2025-02-17] MEDS ORDERED: SPIR25TA8 PO (10:38)
--- NOTE | 2025-02-17 10:49 | DVHDS2 ---
Discharge Summary Date of Admission Feb 12, 2025 at 16:23 Date of Discharge: Feb 17, 2025 Admitting Diagnosis AFib with RVR Labs/Diagnostic Data: Laboratory Results Test 02/17/25 05:08 02/15/25 04:46 02/13/25 04:35 02/12/25 18:45 White Blood Count 10.7 10^3/uL (4.4-10.8) Red Blood Count 4.46 10^6/uL (4.0-5.20) Hemoglobin 15.3 g/dL (12.2-16.2) Hematocrit 43.9 % (36.0-46.0) Mean Corpuscular Volume 98.5 fL (80.0-100.0) Mean Corpuscular Hemoglobin 34.3 pg (28.0-32.0) Mean Corpuscular Hemoglobin Concent 34.8 g/dL (32.0-36.0) Red Cell Distribution Width 14.5 % (11.8-14.3) Platelet Count 306 10^3/uL (140-450) Mean Platelet Volume 7.3 fL (6.9-10.8) Neutrophils (%) (Auto) 65.9 % (37.0-80.0) Lymphocytes (%) (Auto) 21.0 % (10.0-50.0) Monocytes (%) (Auto) 8.9 % (0.0-12.0) Eosinophils (%) (Auto) 3.2 % (0.0-7.0) Basophils (%) (Auto) 1.0 % (0.0-2.0) Neutrophils # (Auto) 7.0 10 ^3/uL (1.6-8.6) Lymphocytes # (Auto) 2.2 10 ^3/uL (0.4-5.4) Monocytes # (Auto) 0.9 10 ^3/uL (0-1.3) Eosinophils # (Auto) 0.3 10 ^3/uL (0-0.8) Basophils # (Auto) 0.1 10 ^3/uL (0-0.2) Nucleated Red Blood Cells 0.1 % Sodium Level 141 mmol/L (136-145) Potassium Level 3.7 mmol/L (3.5-5.1) Chloride Level 99 mmol/L (98-107) Carbon Dioxide Level 30 mmol/L (20-31) Anion Gap 12 (5-15) Blood Urea Nitrogen 15 mg/dL (9-23) Creatinine 0.90 mg/dL (0.550-1.02) Glomerular Filtration Rate Calc 69 mL/min (>90) BUN/Creatinine Ratio 16.7 (10.0-20.0) Serum Glucose 81 mg/dL (74-106) Calcium Level 9.3 mg/dL (8.7-10.4) Magnesium Level 2.2 mg/dL (1.6-2.6) Total Bilirubin 0.8 mg/dL (0.2-1.0) Aspartate Amino Transferase (AST) 122 U/L (13-40) Alanine Aminotransferase (ALT) 380 U/L (7-40) Alkaline Phosphatase 124 U/L (46-116) Total Protein 6.6 g/dL (5.7-8.2) Albumin 3.7 g/dL (3.2-4.8) Vitamin B12 Level 2925 pg/mL (211-911) Folic Acid > 24.00 ng/mL (>5.38) Erythrocyte Sedimentation Rate 8 mm/hr (0-20) C-Reactive Protein High Sensitivity 3.19 mg/dL (<1.0) Prothrombin Time 14.7 sec (9.3-11.8) Prothrombin Time INR 1.44 (0.9-1.15) Activated Partial Thromboplast Time 29.2 SEC (24.5-34.5) Troponin I High Sensitivity 28 ng/L (</=34) B-Type Natriuretic Peptide 899.40 pg/mL (0-100) Triglycerides Level 75 mg/dL (< 150) Cholesterol Level 142 mg/dL (< 200) LDL Cholesterol 85 mg/dL (< 100) HDL Cholesterol 42 mg/dL (40-59) Thyroid Stimulating Hormone (TSH) 2.07 uIU/mL (0.55-4.78) Hepatitis A IgM Antibody Negative Hepatitis B Surface Antigen Negative (Negative) Hepatitis B Surface Antibody Negative (Negative) Hepatitis B Core IgM Antibody Negative (Negative) Hepatitis C Antibody Negative (Negative) Urine Color Yellow (Yellow) Urine Clarity Clear (Clear) Urine pH 5.5 (5.0-9.0) Urine Specific [place] 1.017 (1.001-1.035) Urine Protein Trace (Negative) Urine Ketones Negative (Negative) Urine Blood Negative /uL (Negative) Urine Nitrite Negative (Negative) Urine Bilirubin Negative (Negative) Urine Urobilinogen Normal mg/dL (Negative) Urine Leukocyte Esterase Negative /uL (Negative) Urine RBC 1 /hpf (0 - 4) Urine Microscopic WBC 4 /HPF (0-5) Urine Squamous Epithelial Cells Few /hpf (<5) Urine Amorphous Crystals Few /hpf (None Seen) Urine Bacteria None seen /hpf (None Seen) Urine Hyaline Casts Few /lpf (0 - 2) Urine Mucus Few (None Seen) Urine Glucose Normal mg/dL (Normal) Urine Opiates Screen Neg (NEGATIVE) Urine Fentanyl Screen Neg (NEGATIVE) Urine Barbiturates Screen Neg (NEGATIVE) Urine Phencyclidine Screen Neg (NEGATIVE) Urine Amphetamines Screen Neg (NEGATIVE) Urine Benzodiazepines Screen Neg (NEGATIVE) Urine Cocaine Screen Neg (NEGATIVE) Urine Cannabinoids Screen Pos (NEGATIVE) Test 02/12/25 17:15 02/12/25 13:29 Influenza Type A Antigen Negative (Negative) Influenza Type B Antigen Negative (Negative) SARS-CoV-2 Antigen (Rapid) Negative (NEGATIVE) D-Dimer, Quantitative 0.96 mg/L FEU (0.0-0.49) Lactic Acid Level 1.5 mmol/L (0.4-2.0) Lipase 29 U/L (12-53) Other Laboratory Tests 02/17/25 05:08 Brief Hx & Hospital Course: History of Present Illness Xiomara Garcia is a 69-year-old female with hypertension and anxiety who presents to the ED with shortness of breath and palpitations that started 2 weeks ago. Patient reports that she was walking when the shortness of breath happened but was on an incline, she reports that she does her walks and assumed it was due to that. Patient reports that she does not use home oxygen. Patient's Christiano at the bedside. Patient also reports that she was exposed to her sick who had the flu last week. Patient denies any chest pain, fever, chills, lightheadedness, weakness, dizziness, abdominal pain, nausea, vomiting, diarrhea, or urinary symptoms. Patient also reports that she ambulates without any DMEs. Course of hospitalization: Patient was started on empiric antibiotic therapy, amiodarone drip, as well as IV diuresis. Patient's heart rate did improve. She did convert from sinus rhythm back to atrial fibrillation, with heart rate controlled with a beta- alec therapy. Patient had echocardiogram which revealed ejection fraction ejection fraction of 15%, four-chamber enlargement, severe MR, as well as pulmonary hypertension with elevated right-sided pressures. Patient was diuresed to a euvolemic state. Antibiotics were deescalated to Keflex which will be discontinued at discharge. Anticoagulation was switched from Lovenox to Eliquis. Guideline directed medical therapy was titrated up as well as increasing metoprolol tartrate to 50 mg p.o. b.i.d. to maintain controlled heart rate. Patient did have MRCP which was negative for any signs of CBD obstruction. LFTs improved with patient being adequately diuresis was being treated for heart failure. Cardiology consultation was obtained. Ischemia workup will be held at this time. Patient and has been had discharge plan discussed in detail which includes follow up with Cardiology within 1-2 weeks as well as PCP in 1-2 weeks. Patient will be continued on anticoagulation with Eliquis as well as five pillars of guideline directed medical therapy, continuation with Lasix as well as low-dose potassium replacement. Physical examination General: Alert and Oriented x3. No acute distress. Well-nourished. Eyes: EOMI. Anicteric. HENT: Moist mucous membranes. Lungs: Clear to auscultation bilaterally. No accessory muscle use. Cardiovascular: Regular rate and rhythm. Loud systolic murmur Abdomen: Soft, non-tender and non-distended. No palpable masses. Extremities: No edema. Non-tender. Skin: No rashes or lesions. Warm. Neurologic: No focal neurological deficits. CN II-XII grossly intact, but not individually tested. Psychiatric: Cooperative. Appropriate mood and affect. Total time spent with patient discussing and formulating plan of care: 35 minutes. This medical document was created using an electronic medical record system with [employer] dictation system. Although this document has been carefully reviewed, there may still be some phonetic and typographical errors. These areas are purely typographical due to imperfections of the software programs, and do not reflect any compromise in the patient's medical care. Consults/Reason for consult Cardiology: Decompensated heart failure Condition at Discharge: Guarded Final Diagnosis/Problems List Acute systolic heart failure -AFib with RVR -leukocytosis, ruled out sepsis -pulmonary vascular congestion -pulmonary embolism ruled out -history of OCD -transaminitis, worsening -primary hypertension -acute hypoxic respiratory failure -probable cardiac hepatitis Discharge Disposition: Home Discharge Instruct/Medications Diet: Cardiac 2g Na,low cholest Diet comment: Recommended 1400 mL fluid restriction in 24 hour Activity: No Restrictions, As Tolerated Follow Up/Referral: Cardiology, Dr. Thomas in one week PCP, Dr. Jurado in 1-2 weeks Medications: Lasix 20 mg p.o. daily Jardiance 10 mg p.o. daily Metoprolol tartrate 50 mg p.o. b.i.d. Spironolactone 12.5 mg p.o. daily Potassium chloride 10 mEq daily Cozaar 50 mg p.o. daily Eliquis 5 mg p.o. b.i.d. Scheduled Apixaban Base (Eliquis), 5 MG PO BID Empagliflozin (Jardiance), 10 MG PO DAILY Furosemide (Lasix), 1 TAB PO DAILY Lidocaine (Lidocaine Patch 5%), 5 % EX DAILY Losartan Potassium (Losartan Potassium), 1 TAB PO DAILY Metoprolol Tartrate (Metoprolol Tartrate), 2 TAB PO BID Potassium Chloride (Potassium Chloride Cr), 1 TAB PO DAILY Prednisone (Prednisone), 40 MG PO DAILY Spironolactone (Spironolactone), 0.5 TAB PO DAILY 36 Discharge Statement: "Patient was advised to return to the ER or call 911 if any headaches, dizziness, shortness of breath, chest pain, abdominal pain, bleeding, fevers, or worsening of medical condition. Patient was counseled about treatment plan, medications, possible side effects, patientverbalized understanding. All questions were answered to the best of my ability. This discharge took greater then 30 minutes in planning, reviewing documentation, counseling the patient, and discussing with other team members." ASSESSMENT ASSESSMENT Assessment Acute systolic heart failure Date of Service: Feb 17, 2025 Billing Provider: CHARISSE MENDOZA NP Common Visit Codes: 86586-LSB/OBS DISCH DAY >30min CHARISSE MENDOZA NP Feb 17, 2025 10:49
--- NOTE | 2025-02-17 13:27 | DVHPN2 ---
Progress Note Date Seen: Feb 17, 2025 Resident Creating Document: SILVANO TONG RESIDENT Medical Necessity Reason Pt with a Central, PICC or Fol: No Subjective Review of Systems 69-year-old female presented to the ER with a chief complaint of generalized weakness and shortness of breaths for the past week. Patient is A&O x4, on nasal cannula supplementation 2 L, per patient and , they were experiencing flu-like symptoms for the past week to 10 days, patient reports having diarrhea initially followed by generalized weakness, shortness of breaths on exertion and a dry cough which resolved and then worsened followed which the patient came to the ER. For shortness of breaths, shortness of breaths on exertion, orthopnea but denies PND, denies lower extremity swelling. Denies chest pain, reports palpitations which are chronic, denies abdominal or GI or complaints. They did a COVID test at home which was negative. On arrival to the ER patient was tachycardic, EKG showed AFib with a RVR, reverted to sinus with IV amiodarone drip. COVID flu swabs negative. Past medical history: Hypertension, anxiety, OCD, osteoarthritis Past surgical history: None Home medication: Losartan 100 mg daily, Motrin Social history: Lives in [place] with the , denies smoking, drinking, drug use 02/17 - Patient seen and examined, no acute distress. Telemetry shows atrial fibrillation, rate controlled. Heart rate ranging from 80s to 100s Objective vital signs Vital Sign Date Time Temp Pulse Resp B/P (MAP) Pulse Ox O2 Delivery O2 Flow Rate FiO2 02/17/25 12:00 100 02/17/25 12:00 25 129/88 (102) 92 02/17/25 12:00 Room Air* 0 21 02/17/25 11:15 98.1 Total Intake and Output 02/16/25 02/16/25 02/17/25 15:00 23:00 07:00 Intake Total 450 ml 100 ml Balance 450 ml 100 ml medications Current Medications Medications Dose Ordered Sig/Matheus Route Start Time Stop Time Status Last Admin Dose Admin Ondansetron HCl 4 mg Q4HP PRN IV 02/12/25 16:30 02/13/25 17:32 4 MG Acetaminophen 650 mg Q6HP PRN PO 02/12/25 16:30 Nitroglycerin 0.4 mg Q5MINP PRN SL 02/12/25 16:30 Morphine Sulfate 2 mg Q30M PRN IV 02/12/25 16:30 Melatonin 5 mg HS PO 02/12/25 22:00 02/16/25 20:56 5 MG Sertraline HCl 50 mg DAILY PO 02/13/25 10:00 02/17/25 10:12 50 MG Albuterol 2.5 mg Q6HPRN PRN NEB 02/13/25 12:00 Ipratropium Roberts 0.5 mg Q6HPRN PRN NEB 02/13/25 12:00 Potassium Chloride 40 meq Q4HR PO 02/14/25 12:00 02/14/25 20:00 UNV Phenylephrine HCl 250 ml @ 30 mls/hr Q8H20M IV 02/14/25 14:15 Furosemide 20 mg BIDD IV 02/14/25 18:00 02/17/25 06:05 20 MG Losartan Potassium 50 mg DAILY PO 02/15/25 10:00 02/17/25 10:12 50 MG Empaglifozin 10 mg DAILY PO 02/14/25 18:22 02/17/25 10:12 10 MG Metoprolol Succinate 25 mg DAILY PO 02/17/25 10:00 UNV Metoprolol Tartrate 25 mg BID PO 02/16/25 22:00 02/17/25 10:11 25 MG Cephalexin 500 mg BID PO 02/16/25 22:00 02/17/25 10:10 500 MG Examination Patient lying in bed, in no acute distress General: Well-built, afebrile, palor, mucosae are moist Cardiovascular: Regular S1 and S2. No murmurs, gallops or rubs. No JVD elevation. Minimal pedal edema Respiratory: reduced Bilateral crackles heard on auscultation, no wheezing or stridor heard, on room air Abdomen: Soft, nontender, nondistended, normoactive bowel sounds, no rebound tenderness, no organomegaly, no masses Genitourinary: Deferred MSK/skin: Mobilizes 4 limbs. Skin is dry and warm Neurological: No motor, no sensitive deficits, normal speech. Pupils are isocoric and reactive. Psych/Mental Status: A/Ox3 laboratory and microbiology Laboratory Tests 02/17/25 05:08 Test 02/17/25 05:08 Range/Units Serum Glucose 81 74-106 mg/dL Microbiology Date/Time Source Procedure Growth Status 02/13/25 11:50 Nose MRSA Screen - Final Complete 02/12/25 18:45 Voided Urine Urine Culture - Final Complete 02/12/25 13:38 Blood Blood Culture - Preliminary NO GROWTH AFTER 72 HOURS OF INCUBATION. Resulted Labs and/or images reviewed: Labs reviewed by me, Image(s) reviewed by me Problem List/Assessment/Plan Problem List/Assessment/Plan Atrial fibrillation-now rate controlled-new onset-chads Vasc score 4 De Daniel HFrEF, NYHA class II Likely pneumonia, Gram-positive and negative ? Pulmonary embolus Moderate bilateral pleural effusions Severe pulmonary hypertension Hypertension Transaminitis Liver cyst OCD History of anxiety EKG on arrival, AFib with RVR BNP 899 Plan/Recommendation Given the new onset atrial fibrillation, continue Lovenox 1 mg per kg b.i.d., transition to DOAC on discharge. Continue metoprolol, losartan, jardiance. Avoid antiarrhythmic agent, amiodarone at this time given significant elevation in liver enzymes. Patient is stable from cardiac point of view. We will sign off at this point. Please reconsult us if deemed necessary. Consider spironolactone if Cr improves Patient may also benefit from ischemic workup in the future as well as a transesophageal echocardiogram to further evaluate mitral valve. Echocardiogram reveals an EF of 15%, RVSP 44 mmHg. Repeat CTA negative for PE Monitor and replete electrolytes as needed, keep potassium greater than four and magnesium greater than two. 10 year ASCVD 13.6 - atorvastatin 40mg daily once LFTs stabilize Recommended IV antibiotics for pneumonia Duo nebs q.6 hourly MRSA nares, COVID, flu testing Monitor CMP, GI eval for liver cyst and transaminitis Plan discussed with patient in which all questions have been answered Case discussed with Dr. Nicole Plan discussed with: Patient, Spouse Dietary Evaluation Review Comments: 1) Continue cardiac diet 2) Encourage optimal PO intake 3) Follow-up with cardiology 4) Continue to monitor I&O, labs, and skin integrity Expected Outcomes/Goals: 1) appetite and labs to improve 2) f/u in 3-5 days Visit Coding Cardiology RES Date of Service: Feb 17, 2025 Billing Provider: KATELYNN AJ Sr., MD Cardiology Common Codes: [id number] HOSP CARE(SILVANO Abreu RESIDENT Feb 17, 2025 13:27
--- NOTE | 2025-02-17 23:40 | DVHPN2 ---
Consult Progress Note Date Seen: Feb 17, 2025 Subjective Other Systems: Patient was seen and evaluated in follow up. Telemetry shows atrial fibrillation, rate controlled. Heart rate ranging from 80s to 100s. Patient is cardiac stable for discharge. Telemetry reviewed. Objective vital signs Vital Sign Date Time Temp Pulse Resp B/P (MAP) Pulse Ox O2 Delivery O2 Flow Rate FiO2 02/17/25 12:00 100 02/17/25 12:00 129/88 (102) 92 02/17/25 12:00 Room Air* 0 21 02/17/25 11:15 98.1 Total Intake and Output 02/16/25 02/16/25 02/17/25 15:00 23:00 07:00 Intake Total 450 ml 100 ml Balance 450 ml 100 ml medications Current Medications Medications Dose Ordered Sig/Matheus Route Start Time Stop Time Status Last Admin Dose Admin Potassium Chloride 40 meq Q4HR PO 02/14/25 12:00 02/14/25 20:00 UNV Metoprolol Succinate 25 mg DAILY PO 02/17/25 10:00 UNV Examination: GENERAL:Normal, HEENT:Normal, NECK:Normal, LUNGS:Normal, CVS:Normal, ABDOMEN:Normal, MSK:Normal laboratory and microbiology Laboratory Tests 02/17/25 05:08 Test 02/17/25 05:08 Range/Units Serum Glucose 81 74-106 mg/dL Problem List/Assessment/Plan Problem List/Assessment/Plan Atrial fibrillation-now rate controlled-new onset-chads Vasc score 4. De Daniel HFrEF, NYHA class II. Likely pneumonia, Gram-positive and negative. ? Pulmonary embolus. Moderate bilateral pleural effusions. Severe pulmonary hypertension. Hypertension. Transaminitis. Liver cyst. OCD. History of anxiety. Plan/Recommendation Continued all current supportive medical care. Patient has been seen by Tao Fontenot, Resident on my behalf. We have discussed the plan with the patient. Given the new onset atrial fibrillation, continue Lovenox 1 mg per kg b.i.d., transition to DOAC on discharge. Continue metoprolol, losartan, jardiance. Avoid antiarrhythmic agent, amiodarone at this time given significant elevation in liver enzymes. Patient is stable from cardiac point of view. Consider spironolactone if Cr improves. Patient may also benefit from ischemic workup in the future as well as a transesophageal echocardiogram to further evaluate mitral valve. Echocardiogram reveals an EF of 15%, RVSP 44 mmHg. Repeat CTA negative for PE. Monitor and replete electrolytes as needed, keep potassium greater than four and magnesium greater than two. 10 year ASCVD 13.6 - atorvastatin 40mg daily once LFTs stabilize. Recommended IV antibiotics for pneumonia. Duo nebs q.6 hourly. MRSA nares, COVID, flu testing. Monitor CMP, GI eval for liver cyst and transaminitis. Continued all current supportive medical care. Plan discussed with: Patient Dietary Evaluation Review Comments: 1) Continue cardiac diet 2) Encourage optimal PO intake 3) Follow-up with cardiology 4) Continue to monitor I&O, labs, and skin integrity Expected Outcomes/Goals: 1) appetite and labs to improve 2) f/u in 3-5 days Date of Service: Feb 17, 2025 Billing Provider: KANDY IRBY MD Cardiology Common Codes: [id number] HOSP CARE(High KANDY IRBY MD Feb 17, 2025 15:36
--- NOTE | 2025-02-18 07:45 | ECG ---
[facility] Test Date: 2025-02-14 Test Time: 13:33:31 Pat Name: NASEEM JAMES Department: Room: [address] [place] [address] Gender: F Web Programmer: : 1955 Requested By: DAMEON VASQUES Order Number: [id number] Reading MD: Jorge Thomas Measurements Intervals [place] Rate: 150 P: 0 NV: 0 QRS: 38 QRSD: 80 T: 231 QT: 280 QTc: 443 Interpretive Statements Atrial flutter with predominant 2:1 AV block Repolarization abnormality, prob rate related Electronically Signed On 02-23-2025 11:02:44 PST by Jorge Thomas Please click the below link to view image of tracing.
== END 2025-02-17 12:30 | disposition home or self-care (01) | DRG 291 ==
LOC: ER 10:41 → OVERFLOW 16:23 → DOU 02-13 11:04
PROVIDERS: ADMIT Nurse Practitioner Acute Care; ATTEND Nurse Practitioner Acute Care
DX: I11.0 Hypertensive heart disease with heart failure (principal); I50.21 Acute systolic (congestive) heart failure; J96.01 Acute respiratory failure with hypoxia; I27.20 Pulmonary hypertension, unspecified; K76.1 Chronic passive congestion of liver; I34.0 Nonrheumatic mitral (valve) insufficiency; K76.89 Other specified diseases of liver; R74.01 Elevation of levels of liver transaminase levels; Z20.822 Contact with and (suspected) exposure to COVID-19; F42.9 Obsessive-compulsive disorder, unspecified; F41.9 Anxiety disorder, unspecified; I48.91 Unspecified atrial fibrillation; Z80.3 Family history of malignant neoplasm of breast; Z82.49 Family history of ischemic heart disease and other diseases of the circulatory system; Z80.42 Family history of malignant neoplasm of prostate; Z88.0 Allergy status to penicillin; Z79.899 Other long term (current) drug therapy; Z79.01 Long term (current) use of anticoagulants
CPT/HCPCS: 36415; 71045; 71275; 74181; 76705; 80053; 80061; 80074; 80307; 81001; 82607; 82746; 83605; 83690; 83735; 83880; 84443; 84484; 85025; 85379; 85610; 85652; 85730; 86141; 86706; 87040; 87081; 87086; 87426; 87804; 90656; 93005; 93306; 96361; 96365; 99291; G0378; J2405; J2543

== ENCOUNTER 2025-04-01 13:52 | Outpatient (CLI) | payer BC ==
[~2025-04-01] VITALS: Ht 157.5 cm; Wt 49.9 kg
[~2025-04-01 13:52] MED LIST changes: +APIX5TAB PO; +EMPA1TAB PO; +FURO1TAB33 PO; +LOSA-534 PO; +METO25TA5 PO; +POTA-36 PO; +SPIR25TA8 PO
--- NOTE | 2025-04-10 13:29 | DVHSR ---
APPROVED REPORT Exam: Nuclear Stress Test Indication: Congestive Heart Failure, Atrial Fibrillation Ht: 5 ft 2 in Wt: 110 lbs BSA: 1.48 m2 HR: 97 bpm BP: 103/81 mmHg BMI: 20.11 Rhythm: Atrial Fibrillation Medical History Medical History: HTN, Atrial Fibrillation, Diabetes, CHF Medications: Multaq, Zoloft, Cozaar, Apixaban, Jardiance, Furosemide, Metoprolol, Potassium, Spironolactone, Vit B, Vit C, Vit D Allergies: Amiodarone Cardiac Risk Factors: Family Hx of CAD Stress Test Details Stress Test: Exercise stress testing was performed using a Glenn protocol. HR Resting HR: 97 bpm Max Heart Rate (APMHR): 151.485475 bpm Max HR Achieved: 130 bpm Target HR (85% APMHR): 128.998590 bpm % of APMHR: 86.09 Recovery HR: 84 bpm HR response to stress: accelerated BP Resting BP: 103/81 mmHg Max BP: 141/91 mmHg Recovery BP: 99/77 mmHg BP response to stress: Normal blood pressure response to stress. ECG Resting ECG: Atrial Fibrillation Stress ECG: Atrial Fibrillation ST Change: ST depression Arrhythmia: Atrial fibrillation, Non-sustained VT, PVCs Recovery ECG: Atrial Fibrillation Clinical Reason for Termination: Arrhythmias, Dyspnea, Fatigue Stress Symptoms: Dyspnea, Fatigue Exercise duration: 2 min 40 sec Exercise capacity: 4.60 METs Symptoms improved during recovery. Nurse Comments pt did not want Adenosine stress test. Stress ECG Conclusion ANTERIOR PARTIAL REVERSIBILITY PARTIAL SEPTAL REVERSIBILTY EF <30% ISCHEMIC CARDIOLITE PERFUSION SCAN NM EXAM: Myocardial Perfusion REST/STRESS Imaging Protocol: Rest Tc-99m/Stress Tc-99m 1 day Resting Data Rest SPECT myocardial perfusion imaging was performed in supine position 30 minutes following the intravenous injection of 10.92 mCi of Tc-99m Sestamibi. Time of rest injection: 141 Date: 04/01/2025 Time of rest imagin Date: 04/01/2025 Administration Route: IV Administration Site: Left Arm Exercise Stress At peak stress, the patient was injected intravenously with 31.6 mCi of Tc-99m Sestamibi. Time of stress injection: 1535 Date: 04/01/2025 Time of stress imagin Date: 04/01/2025 Administration Route: IV Administration Site: Left Arm Heart Rate at time of stress injection: 120 bpm. Patient continued to exercise for 0.5 minute(s). Gated Stress SPECT was performed 15 minutes after stress injection. The images were gated to evaluate regional wall motion and calculate left ventricular ejection fraction. Comments Cardiolite injection at 2 minutes, 9 seconds into test. Nuclear Conclusion ANTERIOR PARTIAL REVERSIBILITY PARTIAL SEPTAL REVERSIBILTY EF <30% ISCHEMIC CARDIOLITE PERFUSION SCAN
== END 2025-04-01 17:00 | disposition home or self-care (01) ==
LOC: Rad HDHVI 13:52
PROVIDERS: ATTEND Internal Medicine Cardiovascular Disease
DX: I49.3 Ventricular premature depolarization (principal); I48.0 Paroxysmal atrial fibrillation; I11.0 Hypertensive heart disease with heart failure; I50.9 Heart failure, unspecified; E11.9 Type 2 diabetes mellitus without complications; R94.31 Abnormal electrocardiogram [ECG] [EKG]; Z82.49 Family history of ischemic heart disease and other diseases of the circulatory system
CPT/HCPCS: 78452; 93017; A9500; 96374

== ENCOUNTER → 2025-04-02 | Outpatient (CLI) | payer BC | END | disposition home or self-care (01) | LOC: Rad HDHVI 13:47 | PROVIDERS: ATTEND Internal Medicine Cardiovascular Disease | DX: I08.1 Rheumatic disorders of both mitral and tricuspid valves (principal); I50.21 Acute systolic (congestive) heart failure; I51.7 Cardiomegaly | CPT/HCPCS: 93306 ==